=== PATIENT | male | born 1980 | race Caucasian/White ===

== ENCOUNTER 2023-07-27 11:20 | Inpatient (IN) | payer OTHER, SELFPAY ==
[2023-07-27 11:21] VITALS: BP 132/90; PULSE 89; RESP 14; TEMP 36.8; O2SAT 98; BMI 27.3
--- NOTE | 2023-07-27 11:32 | EDS_ITS ---
<Statement entered by Brianne Ayon MD - 07/27/23 15:02> I have personally performed a face to face assessment of the patient and have reviewed the DARIAN Note. Patient presents secondary to abdominal pain with nausea and vomiting. He states symptoms started last evening with a constant pain across his lower abdomen and intermittent cramping over the upper abdomen. He had multiple bouts of nausea and vomiting. He has not had a bowel movement states he does not feel he is passing gas. He denies history of bowel obstruction and has had no prior abdominal surgeries. He states no one else in his home is sick. Patient sitting upright in bed no acute distress. Head and neck examination unremarkable. Heart is regular rate and rhythm. Lung sounds are clear. Abdomen is soft with mild diffuse tenderness. No guarding or rebound. I do not appreciate any bowel sounds the time of my exam. Lab work is reviewed. Patient does have a leukocytosis with a slight left tamela ft. In light of this CT scan of the abdomen pelvis is obtained. This reveals a segment of small bowel that is inflamed and edematous, concerning for possible Crohn's flare. This is believed to be causing a partial small bowel obstruction. Patient was discussed with surgery as well as GI. Patient will be given Solu-Medrol and Zosyn and admitted to hospitalist service for supportive care. HPI History of Present Illness Chief Complaint: Abd Pain Narrative Narrative: 43-year-old male with no past medical history developed nausea and vomiting last evening with generalized abdominal pain and cramping. He states he last vomited at 8 AM this morning and there was a small amount of bright red blood in the mucus. He has not had a bowel movement in 2 days which is unusual for him. He typically goes 2-3 times daily. He has had no diarrhea, melena, or hematochezia. No urinary symptoms. No history of abdominal surgeries. He does not smoke and drinks alcohol 2-3 times a week. He takes no medications. [facility] Medical History no medical history Home Medications NK 07/27/23 [History Last Taken Unknown] Allergy/AdvReac Type Severity Reaction Status Date / Time No Known Allergies Allergy Verified 07/27/23 11:21 Surgical History no surgical history Social History Smoking Status: Former smoker ROS ROS ED ROS Narrative Constitutional: Negative for fever, chills, malaise. CVS: Negative for chest pain, syncope. Respiratory: Negative for shortness of breath, cough. GI: Positive for abdominal pain, nausea, vomiting. Negative for diarrhea, melena, hematochezia. : Negative for dysuria, hematuria or frequency. EXAM Physical Exam Narrative Exam Narrative: CONST: Patient sitting in no acute distress. EYES: Normal inspection. ENT: Normal inspection, moist mucous membranes. NECK: Normal inspection. RESP: No respiratory distress, CTAB. CVS: Regular rate and rhythm, no murmur, no gallop. ABD: Soft with generalized tenderness, no guarding or rebound, nondistended. SKIN: Color normal, no rash, warm, dry, intact. EXTREMITIES: Normal appearance, no pedal edema. NEURO: Oriented x4. PSYCH: Normal affect. Const Vital Signs: 07/27/23 11:21 Temperature 98.2 F Temperature Source Temporal Pulse Rate 89 Respiratory Rate 14 Blood Pressure 132/90 H Blood Pressure Mean 104 Pulse Ox 98 Oxygen Delivery Method Room Air MDM MDM MDM Narrative Medical decision making narrative: History gathered from: Patient and spouse Patient has acute nausea, vomiting, and abdominal pain since last night. He appears well and nontoxic. Vital signs stable. He has a normal cardiopulmonary exam. Abdomen is soft with generalized tenderness. No peritoneal signs. Differential includes gastroenteritis, diverticulitis, pancreatitis, cholecystitis, SBO among others. I ordered IV fluids, Bentyl, and Zofran and labs. CBC shows white count of 15.6. CMP is normal other than glucose 131 with normal CO2 and anion gap. Lipase within normal limits. Due to leukocytosis a CT was ordered. The radiologist called to go over the CT findings. He has extensive small bowel feces involving the last 20 cm of his ileum with edematous wall thickening concerning for a partial SBO. He states it looks like he may have underlying inflammatory bowel disease. Patient remains n.p.o. and has not vomited here so I do not think he requires an NG tube. General surgery was consulted who recommended admitting to medicine and consulting GI. Case was discussed with Dr. Winston who recommended IV Zosyn and Solu-Medrol. Case will be discussed with the hospitalist for admission. Consults: GI, general surgery, hospitalist Lab Data Attestation: I reviewed the patient's lab results. Labs: Laboratory Results - last 24 hr 07/27/23 11:40 WBC 15.6 H RBC 5.22 Hgb 16.1 Hct 45.3 MCV 86.8 MCH 30.8 MCHC 35.5 RDW Std Deviation 42.5 RDW Coeff of Jose Daniel 13.6 Plt Count 276 MPV 9.4 Immature Gran % (Auto) 0.300 Neut % (Auto) 83.1 H Lymph % (Auto) 9.3 L [place] % (Auto) 7.0 Eos % (Auto) 0.1 Baso % (Auto) 0.2 Absolute Neuts (auto) 13.0 H Absolute Lymphs (auto) 1.45 Nucleated RBC % 0 Sodium 137 Potassium 4.0 Chloride 102 Carbon Dioxide 27.0 Anion Gap 8 BUN 11 Creatinine 0.98 Estim Creat Clear Calc 102.45 Est GFR (MDRD) Af Amer 106 Est GFR (MDRD) Non-Af 88 BUN/Creatinine Ratio 11.2 Glucose 131 H Calcium 9.2 Total Bilirubin 0.80 AST 21 ALT 46 Alkaline Phosphatase 86 Total Protein 8.0 Albumin 4.1 Globulin 3.9 Albumin/Globulin Ratio 1.1 Lipase 54 Radiography Diagnostic Testing: Clinical Impression(s) from Imaging Studies Abdomen/Pelvis CT 07/27/23 11:58 IMPRESSION: 1. Extensive small bowel feces sign involving the distal/terminal ileum with edematous wall thickening. Mildly enlarged adjacent lymph nodes. Findings suggestive of at least partial small bowel obstruction that may be related to inflammatory bowel disease such as Crohn''s disease or infectious ileitis. 2. Trace ascites. 3. Fatty liver. 4. Small fat-containing paraumbilical hernia. No bowel involvement. N.B. : The above Results were Read Back by John Brenner MD to EDINSON Blood, and understanding confirmed on 07/27/2023 12:39:31 (ET). Electronically Signed: John Brenner MD at 12:41 EST , ADDENDUM: 07/27/23 1248 IMPRESSION: 1. Extensive small bowel feces sign involving the distal/terminal ileum with edematous wall thickening. Mildly enlarged adjacent lymph nodes. Findings suggestive of at least partial small bowel obstruction that may be related to inflammatory bowel disease such as Crohn''s disease or infectious ileitis. 2. Trace ascites. 3. Fatty liver. 4. Small fat-containing paraumbilical hernia. No bowel involvement. N.B. : The above Results were Read Back by John Brenner MD to EDINSON Blood, and understanding confirmed on 07/27/2023 12:39:31 (ET). Electronically Signed: John Brenner MD at 12:41 EST , Discharge Plan Triage Chief Complaint: Abd Pain ED Midlevel Provider: Leana Jones ED Provider: Brianne Ayon Dx/Rx/DC Orders Clinical Impression: Nausea and vomiting, Partial small bowel obstruction, Small bowel edema Prescriptions: No Action NK Primary Care Provider: Care Physician,No Primary Referrals: Parker Christensen MD [Non-Staff] -
[2023-07-27] MEDS: Dicyclomine 20 MG/2 ML Vial IM (11:41)
[2023-07-27] MEDS: Ondansetron 4 MG/2 ML Vial IV (11:42)
[2023-07-27] MEDS: 0.9% Normal Saline (1000mL) 1,000 ML 1000 ML IV (11:42)
[2023-07-27 11:45] LABS: Absolute Lymphocyte Count 1.45 X10^3/uL (0.83-4.51); Basophil# 0.03 X10^3/uL; Basophil% 0.2 % (0-1); Eosinophil# 0.02 X10^3/uL; Eosinophils% 0.1 % (0-5); Hematocrit 45.3 % (40-54); Hemoglobin 16.1 g/dL (13.0-16.5); Lymphocyte # 1.45 X10^3/ul (0.83-4.51); Lymphocyte % 9.3 % (19-41); Mean Corp Hgb Conc 35.5 g/dL (32-36); Mean Corpuscular Hgb 30.8 pg (27.0-32.0); Mean Corpuscular Volume 86.8 fL (80-94); Mean Platelet Vol. 9.4 fl (6.2-12.0); Monocyte# 1.09 X10^3/uL; NRBC Flagged by Analyzer 0 % (0-5); Neutrophil # 13.01 X10^3/uL (2.7-7.7); Neutrophil % 83.1 % (47-70); Platelet Count 276 K/mm3 (150-450); RBC Distribution Width CV 13.6 % (11.6-14.6); RBC Distribution Width SD 42.5 fl (35.1-43.9); Red Blood Count 5.22 M/mm3 (4.6-6.2); White Blood Count 15.6 K/mm3 (4.4-11.0)
--- NOTE | 2023-07-27 11:58 | CT_ITS ---
EXAM: CT ABDOMEN AND PELVIS WITH INTRAVENOUS CONTRAST CLINICAL INDICATION: abdominal pain TECHNIQUE: Helically acquired images were obtained of the abdomen and pelvis with intravenous contrast. This CT exam was performed using one or more of the following dose reduction techniques: automated exposure control, adjustment of the mA and/or kV according to patient size, and/or use of iterative reconstruction technique. CONTRAST: 100 cc of Isovue-300 IV. RADIATION DOSE: CTDIvol = 13.39 mGy, DLP = 916.67 mGy-cm COMPARISON: No relevant prior studies available. FINDINGS: LOWER THORAX: Unremarkable. Lung bases are clear. No cardiomegaly. No significant pericardial effusion. ABDOMEN: LIVER: There is diffuse low-attenuation of the liver. GALLBLADDER AND BILE DUCTS: Unremarkable. No calcified gallstones. No gallbladder distention or wall edema. No intra- or extrahepatic biliary ductal dilation. PANCREAS: Unremarkable. No focal cystic or solid mass. SPLEEN: Unremarkable. Normal size without focal cystic or solid mass. ADRENALS: Unremarkable. No nodules. KIDNEYS AND URETERS: Unremarkable. Normal renal size and position. No hydronephrosis. STOMACH AND BOWEL: Moderate amount of fecal-like material distending an approximate 20 cm length of the distal and terminal ileum up to 3.5 cm in diameter. Just proximal to this there is fluid distention of the distal ileum with mild edematous wall thickening. PELVIS: APPENDIX: No evidence of acute appendicitis. BLADDER: Unremarkable. REPRODUCTIVE: Unremarkable as visualized. No mass. ABDOMEN and PELVIS: INTRAPERITONEAL SPACE: Trace ascites. No free air. BONES/JOINTS: Unremarkable. No suspicious lytic or blastic abnormality. SOFT TISSUES: Small fat-containing paraumbilical hernia. VASCULATURE: Unremarkable. Abdominal aorta is non-dilated. LYMPH NODES: Multiple mildly enlarged adjacent lymph nodes adjacent to the terminal ileum. CT/Abdomen/Pelvis W IV Cont ONLY IMPRESSION: 1. Extensive small bowel feces sign involving the distal/terminal ileum with edematous wall thickening. Mildly enlarged adjacent lymph nodes. Findings suggestive of at least partial small bowel obstruction that may be related to inflammatory bowel disease such as Crohn''s disease or infectious ileitis. 2. Trace ascites. 3. Fatty liver. 4. Small fat-containing paraumbilical hernia. No bowel involvement. N.B. : The above Results were Read Back by John Brenner MD to EDINSON Blood, and understanding confirmed on 07/27/2023 12:39:31 (ET). Electronically Signed: John Brenner MD at 12:41 EST ,
[2023-07-27 12:08] LABS: ALB/GLOB Ratio 1.1 RATIO (0.9-2.4); AST(SGOT) 21 U/L (15-37); Alanine Aminotransfer ALT/SGPT 46 U/L (16-61); Albumin, Serum 4.1 g/dL (3.2-5.0); Alkaline Phosphatase 86 U/L (45-117); Anion Gap 8 (5-15); BUN 11 mg/dL (7-18); BUN/Creat Ratio 11.2 RATIO (10-20); Calcium,Total 9.2 mg/dL (8.5-10.1); Chloride 102 mmol/L (98-107); Creatinine, Serum 0.98 mg/dL (0.70-1.30); EST Glomerular Filtration Rate 88 mL/min (>60); Est Glom Filt Rate - Afr Amer 106 mL/min (>60); Estimated Creatinine Clearance 102.45 ml/min; Globulin 3.9 g/dL (2.2-4.2); Glucose 131 mg/dL (74-106); Lipase 54 U/L (13-75); Sodium Level 137 mmol/L (136-145)
[2023-07-27] MEDS: MethylPREDNISolone 125 MG/2 ML Vial IV (13:13)
--- NOTE | 2023-07-27 13:17 | HP.PCM.HOS_ITS ---
HPI - General General Date of Admission: 07/27/23 Date of Service: 07/27/23 Chief Complaint: Abd pain, n/v HPI Narrative DUSTIN MENDEZ, is a 43y/o M with no known past medical history who presented to [facility] 07/27/2023 with nausea and vomiting and generalized abdominal pain since last evening. Last vomited at 8 AM this morning and had some blood in his emesis. Has not had bowel movement in 2 days which is unusual for him. In the ED lab work-up only remarkable for CBC of 15.[address] was ordered, patient was found to have extensive small bowel feces involving at least 20 cm of ileum with edematous wall thickening concerning for partial small bowel obstruction inquired if there could be underlying inflammatory bowel disease. General surgery was contacted in the ED who recommended medicine admission and GI consult. GI was contacted in ED and recommended Solu-Medrol and IV Zosyn. Hospitalist contacted for admission. Patient seen with family member at bedside, he endorses history as above and stated he was in his usual health prior to that, has had some cold sweats after his episodes of nausea and vomiting which happened about 5 times with the last time being this morning. Was still nauseous and having abdominal pain when he came in however it is improving now with fluids, antibiotics, and steroids as well as Zosyn. Did have an episode of cramping primarily in his upper abdomen during exam when said he still some tenderness and pressure in his lower abdomen, still is not passed gas. [facility] Medical History no medical history Home Medications NK 07/27/23 [History Last Taken Unknown] Allergy/AdvReac Type Severity Reaction Status Date / Time No Known Allergies Allergy Verified 07/27/23 11:21 Surgical History no surgical history Social History Smoking Status: Former smoker ROS ROS Narrative General: Denies fever/chills but had some cold sweats with his nausea and vomiting HENT: Denies headache, denies stuffy nose, denies sore throat EYES: Denies changes in vision Resp: Denies cough, denies shortness of breath Cardiac: Denies chest pain GI: Abdominal cramping, no bowel movement in 2 days, nausea and vomiting for 2 days : Denies changes in urination Extremity: Denies swelling MSK: Denies weakness Neuro: Denies any numbness/tingling Heme: Denies any bleeding or bruising Skin: Denies rashes Psychiatric: No complaints voiced Vital Signs Vital Signs Vital Signs: 07/27/23 11:21 Temperature 98.2 F Temperature Source Temporal Pulse Rate 89 Respiratory Rate 14 Blood Pressure 132/90 H Blood Pressure Mean 104 Pulse Ox 98 Oxygen Delivery Method Room Air Weight Weight: 89.1 kg Body Mass Index (BMI) 27.3 Physical Exam Narrative General: Alert, oriented, no apparent distress HEENT: Atraumatic, normocephalic Eyes: Anicteric, normal conjunctiva, extraocular movements grossly intact Neck: Supple Respiratory: Clear to auscultation bilaterally, normal respiratory effort Cardiovascular: Regular rate and rhythm GI: Slightly distended, tender primarily in lower quadrants without rebound, guarding, rigidity Extremities: No edema Musculoskeletal: Moving all extremities Neuro: No overt focal neurological deficits Skin: No rashes appreciated Psych: Cooperative Results Lab / Micro Data 07/27/23 11:40 07/27/23 11:40 Labs: Laboratory Results - last 24 hr 07/27/23 11:40: WBC 15.6 H, RBC 5.22, Hgb 16.1, Hct 45.3, MCV 86.8, MCH 30.8, MCHC 35.5, RDW Std Deviation 42.5, RDW Coeff of Jose Daniel 13.6, Plt Count 276, MPV 9.4, Immature Gran % (Auto) 0.300, Neut % (Auto) 83.1 H, Lymph % (Auto) 9.3 L, [place] % (Auto) 7.0, Eos % (Auto) 0.1, Baso % (Auto) 0.2, Absolute Neuts (auto) 13.0 H, Absolute Lymphs (auto) 1.45, Nucleated RBC % 0, Sodium 137, Potassium 4.0, Chloride 102, Carbon Dioxide 27.0, Anion Gap 8, BUN 11, Creatinine 0.98, Estim Creat Clear Calc 102.45, Est GFR (MDRD) Af Amer 106, Est GFR (MDRD) Non-Af 88, BUN/Creatinine Ratio 11.2, Glucose 131 H, Calcium 9.2, Total Bilirubin 0.80, AST 21, ALT 46, Alkaline Phosphatase 86, Total Protein 8.0, Albumin 4.1, Globulin 3.9, Albumin/Globulin Ratio 1.1, Lipase 54 Imagaing Radiology Impression Abdomen/Pelvis CT 07/27/23 11:58 IMPRESSION: 1. Extensive small bowel feces sign involving the distal/terminal ileum with edematous wall thickening. Mildly enlarged adjacent lymph nodes. Findings suggestive of at least partial small bowel obstruction that may be related to inflammatory bowel disease such as Crohn''s disease or infectious ileitis. 2. Trace ascites. 3. Fatty liver. 4. Small fat-containing paraumbilical hernia. No bowel involvement. N.B. : The above Results were Read Back by John Brenner MD to EDINSON Blood, and understanding confirmed on 07/27/2023 12:39:31 (ET). Electronically Signed: John Brenner MD at 12:41 EST , ADDENDUM: 07/27/23 1248 IMPRESSION: 1. Extensive small bowel feces sign involving the distal/terminal ileum with edematous wall thickening. Mildly enlarged adjacent lymph nodes. Findings suggestive of at least partial small bowel obstruction that may be related to inflammatory bowel disease such as Crohn''s disease or infectious ileitis. 2. Trace ascites. 3. Fatty liver. 4. Small fat-containing paraumbilical hernia. No bowel involvement. N.B. : The above Results were Read Back by John Brenner MD to EDINSON Blood, and understanding confirmed on 07/27/2023 12:39:31 (ET). Electronically Signed: John Brenner MD at 12:41 EST , Assessment & Plan Assessment/Plan (1) Nausea and vomiting: (2) Partial small bowel obstruction: (3) Small bowel edema: PLAN: Plan #N/V/Abd pain 2/2 partial sbo/small bowel edema and ?crohn's flare -Lab work-up only remarkable for white blood cell count of 15.6 -CT scan in ED demonstrated extensive small bowel feces involving last 20 cm of ileum with edematous thickening concerning for partial small bowel obstruction but may have underlying inflammatory bowel disease based on imaging -NPO -IVF -Zosyn -Continue IV steroids -GI c/s, surgery c/s -I's and O's #DVT ppx: Lovenox subcu Candace Mills MD Time spent in the patient's overall evaluation,decision-making process, review of diagnostic data, adjustment of management, discussion with other providers, nursing nursing and ancillary staff involved in patient's care documentation, 55Minutes Charges/Coding Visit Charges Inpatient E&M: 57743 Init Hosp L2
[2023-07-27 13:20] VITALS: BP 128/74; PULSE 85; RESP 16; TEMP 36.7; O2SAT 98
[2023-07-27] MEDS: Piperacil/Tazobactam 3.375 GM in 0.9% Normal Saline (50mL MB+) 50 ML IV ×2 (13:35→21:11)
--- NOTE | 2023-07-27 13:36 | CON.PCM.SX_ITS ---
Assessment & Plan Assessment/Plan (1) Partial small bowel obstruction: PLAN: The patient presented with right lower quadrant pain since yesterday. He had a CT scan which showed some thickening of the small bowel in the distal ileum as well as the proximal colon. Patient also has some fecalization of stool in the distal small bowel. The patient does have stool in the colon and proximal to the fecalized stool there is no distention of small bowel. There was concern for possible inflammatory bowel disease. I discussed with the spitalist and the plan is to admit the patient and start steroids. If the steroids do not help I will order a p.o. and IV contrast CT in the morning to see if the p.o. contrast will help move things along and to get a better image of the wall thickening of the colon. Sly Resendiz MD Pager: [facility] [address] [place] [address], [address] [place] [address] Office: HPI Consult Data Date of Consult: 07/27/23 HPI Narrative HPI Narrative: DUSTIN MENDEZ, is a 43 M who presents with lower pain that started yesterday. Patient reports he did have some nausea and vomiting and cramping. Says he does not see any blood in his stool. He says the pain is in his lower abdomen and right lower quadrant. He says he does not have any family history of Crohn's disease or inflammatory bowel disease. [facility] Medical History no medical history Home Medications NK 07/27/23 [History Last Taken Unknown] Allergy/AdvReac Type Severity Reaction Status Date / Time No Known Allergies Allergy Verified 07/27/23 11:21 Surgical History no surgical history Social History Smoking Status: Former smoker ROS Constitutional Constitutional: Denies anorexia, chills, fatigue or fever(s) Eyes Eyes: Denies blurry vision ENT HEENT: Denies abnormal hearing Cardiovascular Cardiovascular: Denies chest pain Respiratory/Chest Respiratory/Chest: Denies cough or dyspnea Gastrointestinal Gastrointestinal: Reports abdominal pain and vomiting; Denies change in bowel habits, coffee ground emesis, hematemesis, hematochezia or rectal bleeding Genitourinary Genitourinary: Denies change in urinary stream Musculoskeletal Musculoskeletal: Denies abnormal gait Integumentary Integumentary: Denies jaundice or new lesions Neurologic Neurologic: Denies dizziness Psychiatric Psychiatric: Denies anxiety Endocrine Endocrinology: Denies heat intolerance Hematologic/Lymphatic Hematologic/Lymphatic: Denies easy bleeding Physical Exam Const alert and oriented x3 HEENT normocephalic Eyes PERRL Lymph Lymphatic: no lymphadenopathy noted Resp normal respiratory effort Cardio Rate: regular rate Rhythm: regular rhythm GI soft to palpation Inspection: Negative for abdominal distention Palpation: tender LLQ and RLQ Lab / Micro Data 07/27/23 11:40 07/27/23 11:40 Labs: Laboratory Results - last 24 hr 07/27/23 11:40: WBC 15.6 H, RBC 5.22, Hgb 16.1, Hct 45.3, MCV 86.8, MCH 30.8, MCHC 35.5, RDW Std Deviation 42.5, RDW Coeff of Jose Daniel 13.6, Plt Count 276, MPV 9.4, Immature Gran % (Auto) 0.300, Neut % (Auto) 83.1 H, Lymph % (Auto) 9.3 L, [place] % (Auto) 7.0, Eos % (Auto) 0.1, Baso % (Auto) 0.2, Absolute Neuts (auto) 13.0 H, Absolute Lymphs (auto) 1.45, Nucleated RBC % 0, Sodium 137, Potassium 4.0, Chloride 102, Carbon Dioxide 27.0, Anion Gap 8, BUN 11, Creatinine 0.98, Estim Creat Clear Calc 102.45, Est GFR (MDRD) Af Amer 106, Est GFR (MDRD) Non-Af 88, BUN/Creatinine Ratio 11.2, Glucose 131 H, Calcium 9.2, Total Bilirubin 0.80, AST 21, ALT 46, Alkaline Phosphatase 86, Total Protein 8.0, Albumin 4.1, Globulin 3.9, Albumin/Globulin Ratio 1.1, Lipase 54 Imagaing Radiology Impression Abdomen/Pelvis CT 07/27/23 11:58 IMPRESSION: 1. Extensive small bowel feces sign involving the distal/terminal ileum with edematous wall thickening. Mildly enlarged adjacent lymph nodes. Findings suggestive of at least partial small bowel obstruction that may be related to inflammatory bowel disease such as Crohn''s disease or infectious ileitis. 2. Trace ascites. 3. Fatty liver. 4. Small fat-containing paraumbilical hernia. No bowel involvement. N.B. : The above Results were Read Back by John Brenner MD to EDINSON Blood, and understanding confirmed on 07/27/2023 12:39:31 (ET). Electronically Signed: John Brenner MD at 12:41 EST , ADDENDUM: 07/27/23 1248
[2023-07-27 14:24] VITALS: BP 133/79; PULSE 75; RESP 16; TEMP 36.7; O2SAT 99
[2023-07-27 14:55] VITALS: BP 114/48; PULSE 73; RESP 16; TEMP 37.1; O2SAT 94
[2023-07-27 14:57] VITALS: BMI 37.2
[2023-07-27] MEDS: 0.9% Normal Saline (1000mL) 1,000 ML 100 ML IV (16:09)
--- NOTE | 2023-07-27 16:35 | EX.PCM.CON.G ---
HPI Consult Data Date of Consult: 07/27/23 HPI Narrative Reason for Consultation: Possible Crohns disease HPI Narrative: DUSTIN MENDEZ, is a 43 M who presents with worsening abdominal pain with nausea and vomiting. He states symptoms started last evening with a constant pain across his lower abdomen and intermittent cramping over the upper abdomen. He had multiple bouts of nausea and vomiting. He has not had a bowel movement states he does not feel he is passing gas. He denies history of bowel obstruction and has had no prior abdominal surgeries. He states no one else in his home is sick. He does take occasional Motrin and aspirin for occasional headache but does not take it on a daily basis. Lab work is reviewed. Patient does have a leukocytosis with a slight left shift. In light of this CT scan of the abdomen pelvis is obtained. This reveals a segment of small bowel that is inflamed and edematous, concerning for possible Crohn's flare. This is believed to be causing a partial small bowel obstruction. Patient was be given Solu-Medrol and Zosyn and admitted to hospitalist service for supportive care. [facility] Medical History (Updated 07/27/23 @ 16:[address] Bartlett Friend, DO) Former smoker Migraines Medical History no medical history Home Medications NK 07/27/23 [History Last Taken Unknown] Allergy/AdvReac Type Severity Reaction Status Date / Time No Known Allergies Allergy Verified 07/27/23 11:21 Surgical History no surgical history Social History Smoking Status: Former smoker ROS Constitutional Constitutional: Denies anorexia, chills, fatigue or fever(s) Eyes Eyes: Denies blurry vision ENT HEENT: Denies abnormal hearing Cardiovascular Cardiovascular: Denies chest pain Respiratory/Chest Respiratory/Chest: Denies cough or dyspnea Gastrointestinal Gastrointestinal: Reports abdominal pain and vomiting; Denies change in bowel habits, coffee ground emesis, hematemesis, hematochezia or rectal bleeding Genitourinary Genitourinary: Denies change in urinary stream Musculoskeletal Musculoskeletal: Denies abnormal gait Integumentary Integumentary: Denies jaundice or new lesions Neurologic Neurologic: Denies dizziness Psychiatric Psychiatric: Denies anxiety Endocrine Endocrinology: Denies heat intolerance Hematologic/Lymphatic Hematologic/Lymphatic: Denies easy bleeding Physical Exam Const alert and oriented x3 HEENT normocephalic Eyes PERRL Lymph Lymphatic: no lymphadenopathy noted Resp normal respiratory effort Cardio Rate: regular rate Rhythm: regular rhythm GI soft to palpation Inspection: Negative for abdominal distention Palpation: tender LLQ and RLQ Lab / Micro Data 07/27/23 11:40 07/27/23 11:40 Labs: Laboratory Results - last 24 hr 07/27/23 11:40: WBC 15.6 H, RBC 5.22, Hgb 16.1, Hct 45.3, MCV 86.8, MCH 30.8, MCHC 35.5, RDW Std Deviation 42.5, RDW Coeff of Jose Daniel 13.6, Plt Count 276, MPV 9.4, Immature Gran % (Auto) 0.300, Neut % (Auto) 83.1 H, Lymph % (Auto) 9.3 L, [place] % (Auto) 7.0, Eos % (Auto) 0.1, Baso % (Auto) 0.2, Absolute Neuts (auto) 13.0 H, Absolute Lymphs (auto) 1.45, Nucleated RBC % 0, Sodium 137, Potassium 4.0, Chloride 102, Carbon Dioxide 27.0, Anion Gap 8, BUN 11, Creatinine 0.98, Estim Creat Clear Calc 102.45, Est GFR (MDRD) Af Amer 106, Est GFR (MDRD) Non-Af 88, BUN/Creatinine Ratio 11.2, Glucose 131 H, Calcium 9.2, Total Bilirubin 0.80, AST 21, ALT 46, Alkaline Phosphatase 86, Total Protein 8.0, Albumin 4.1, Globulin 3.9, Albumin/Globulin Ratio 1.1, Lipase 54 Imagaing Radiology Impression Abdomen/Pelvis CT 07/27/23 11:58 IMPRESSION: 1. Extensive small bowel feces sign involving the distal/terminal ileum with edematous wall thickening. Mildly enlarged adjacent lymph nodes. Findings suggestive of at least partial small bowel obstruction that may be related to inflammatory bowel disease such as Crohn''s disease or infectious ileitis. 2. Trace ascites. 3. Fatty liver. 4. Small fat-containing paraumbilical hernia. No bowel involvement. N.B. : The above Results were Read Back by John Brenner MD to [facility] Blood, and understanding confirmed on 07/27/2023 12:39:31 (ET). Electronically Signed: John Brenner MD at 12:41 EST , ADDENDUM: 07/27/23 1248 IMPRESSION: 1. Extensive small bowel feces sign involving the distal/terminal ileum with edematous wall thickening. Mildly enlarged adjacent lymph nodes. Findings suggestive of at least partial small bowel obstruction that may be related to inflammatory bowel disease such as Crohn''s disease or infectious ileitis. 2. Trace ascites. 3. Fatty liver. 4. Small fat-containing paraumbilical hernia. No bowel involvement. N.B. : The above Results were Read Back by John Brenner MD to [facility]IN[facility] Blood, and understanding confirmed on 07/27/2023 12:39:31 (ET). Electronically Signed: John Brenner MD at 12:41 EST , Assessment & Plan Assessment/Plan (1) Small bowel edema: (2) Partial small bowel obstruction: (3) Nausea and vomiting: QUALIFIERS: Vomiting type: unspecified Qualified Code(s): R11.2 - Nausea with vomiting, unspecified PLAN: Plan Isolated terminal ileitis is commonly found associated with Crohn's disease but it has other etiologies too. Other common causes of isolated terminal ileitis include NSAID use, tuberculosis and other bacterial/parasitic infections, neoplasia, radiation or other autoimmune disorders. Agree with antibiotics and steroids at this time. We went over the natural history of possible inflammatory bowel disease being fibrostenotic, inflammatory or fistulizing. I will send biochemical profile for inflammatory bowel disease. I will also send biochemical work-up for autoimmune diseases such as Behcet's syndrome. He will need stool cultures, fecal calprotectin, ESR, CRP, ONI, ANCA, LDH, protein electrophoresis. Eventually he will need a colonoscopy with biopsies and MRI enterography with possible capsule endoscopy. Charges/Coding Visit Charges Inpatient E&M: 87339 Init Hosp L3
[2023-07-27 17:36] LABS: Erythrocyte Sedimentation Rate 10 mm/hr (0-20)
[2023-07-27 17:41] LABS: LDH 192 U/L (87-241)
[2023-07-27 21:09] VITALS: BP 122/68; PULSE 84; RESP 18; TEMP 36.8; O2SAT 93
[2023-07-27] MEDS: 0.9% Normal Saline (250mL Bag) 250 ML 15 ML IV (21:12)
[2023-07-28] MEDS: 0.9% Normal Saline (1000mL) 1,000 ML 100 ML IV ×3 (00:27→21:15)
[2023-07-28] MEDS: 0.9% Saline Lock 10 ML Syringe IV ×4 (00:28→21:08)
[2023-07-28 00:31] VITALS: BP 130/63; PULSE 74; RESP 18; TEMP 36.4; O2SAT 95
[2023-07-28 05:34] VITALS: BP 121/67; PULSE 69; RESP 18; TEMP 36.4; O2SAT 97
[2023-07-28] MEDS: Piperacil/Tazobactam 3.375 GM in 0.9% Normal Saline (50mL MB+) 50 ML IV ×3 (05:38→21:10)
--- NOTE | 2023-07-28 08:09 | PN.SURG_ITS ---
Subjective Subjective Patient reports he is feeling much better today. He is having no abdominal pain or bloating. He denies any nausea or vomiting. He says he did pass gas several times through the night. He has not had a bowel movement yet. Objective Data Objective Data Vital Signs: Vital Signs Temp Pulse Resp BP Pulse Ox O2 Del Method 97.6 F L 69 18 121/67 H 97 Room Air 07/28/23 05:34 07/28/23 05:34 07/28/23 05:34 07/28/23 05:34 07/28/23 05:34 07/28/23 05:34 Oxygen Delivery Method Room Air Weight: 197 lb 1.492 oz Body Mass Index (BMI) 37.2 Intake & Output: Intake and Output for Last 24 Hours 07/26/23 07/27/23 07/28/23 23:59 23:59 23:59 Intake Total 1051.75 / 1051.75 946.75 / 946.75 Balance 1051.75 / 1051.75 946.75 / 946.75 Lab / Micro Data 07/27/23 11:40 07/27/23 11:40 Labs: Laboratory Results - last 24 hr 07/27/23 11:40: WBC 15.6 H, RBC 5.22, Hgb 16.1, Hct 45.3, MCV 86.8, MCH 30.8, MCHC 35.5, RDW Std Deviation 42.5, RDW Coeff of Jose Daniel 13.6, Plt Count 276, MPV 9.4, Immature Gran % (Auto) 0.300, Neut % (Auto) 83.1 H, Lymph % (Auto) 9.3 L, [place] % (Auto) 7.0, Eos % (Auto) 0.1, Baso % (Auto) 0.2, Absolute Neuts (auto) 13.0 H, Absolute Lymphs (auto) 1.45, Nucleated RBC % 0, ESR 10, Sodium 137, Potassium 4.0, Chloride 102, Carbon Dioxide 27.0, Anion Gap 8, BUN 11, Creatinine 0.98, Estim Creat Clear Calc 102.45, Est GFR (MDRD) Af Amer 106, Est GFR (MDRD) Non-Af 88, BUN/Creatinine Ratio 11.2, Glucose 131 H, Calcium 9.2, Total Bilirubin 0.80, AST 21, ALT 46, Alkaline Phosphatase 86, Lactate Dehydrogenase 192, C-React Prot Ext Range 12.50 H, Total Protein 8.0, Albumin 4.1, Globulin 3.9, Albumin/Globulin Ratio 1.1, Lipase 54 Radiography Diagnostic Testing: Radiology Impression Abdomen/Pelvis CT 07/27/23 11:58 IMPRESSION: 1. Extensive small bowel feces sign involving the distal/terminal ileum with edematous wall thickening. Mildly enlarged adjacent lymph nodes. Findings suggestive of at least partial small bowel obstruction that may be related to inflammatory bowel disease such as Crohn''s disease or infectious ileitis. 2. Trace ascites. 3. Fatty liver. 4. Small fat-containing paraumbilical hernia. No bowel involvement. N.B. : The above Results were Read Back by John Brenner MD to [facility] Blood, and understanding confirmed on 07/27/2023 12:39:31 (ET). Electronically Signed: John Brenner MD at 12:41 EST , ADDENDUM: 07/27/23 1248 IMPRESSION: 1. Extensive small bowel feces sign involving the distal/terminal ileum with edematous wall thickening. Mildly enlarged adjacent lymph nodes. Findings suggestive of at least partial small bowel obstruction that may be related to inflammatory bowel disease such as Crohn''s disease or infectious ileitis. 2. Trace ascites. 3. Fatty liver. 4. Small fat-containing paraumbilical hernia. No bowel involvement. N.B. : The above Results were Read Back by John Brenner MD to [facility] Blood, and understanding confirmed on 07/27/2023 12:39:31 (ET). Electronically Signed: John Brenner MD at 12:41 EST , Physical Exam Const oriented x3 and no apparent distress Resp normal respiratory effort GI soft to palpation and non-tender Assessment & Plan Assessment/Plan (1) Partial small bowel obstruction: PLAN: The patient reports that he is feeling much better with no bloating and he is passing gas. His abdomen is soft and nontender and he is not having any pain. I believe this is likely due to the steroids. I am okay with him advancing his diet but I will leave that decision to the primary team and the GI doctor. No signs of acute obstruction at this time. No plans for surgery at this time. Sly Resendiz MD Pager: [facility] [address] [place] [address], [address] [place] [phone] Office:
[2023-07-28 08:42] LABS: Absolute Lymphocyte Count 0.86 X10^3/uL (0.83-4.51); Absolute Neutrophil Count 13.6 X10^3/uL (2.0-7.7); Basophil# 0.02 X10^3/uL; Basophil% 0.1 % (0-1); Hemoglobin 13.9 g/dL (13.0-16.5); Lymphocyte # 0.86 X10^3/ul (0.83-4.51); Lymphocyte % 5.8 % (19-41); Mean Corp Hgb Conc 33.1 g/dL (32-36); Mean Corpuscular Hgb 30.2 pg (27.0-32.0); Mean Corpuscular Volume 91.3 fL (80-94); Mean Platelet Vol. 10.2 fl (6.2-12.0); Monocyte# 0.33 X10^3/uL; Monocyte% 2.2 % (0-10); NRBC Flagged by Analyzer 0 % (0-5); Neutrophil # 13.61 X10^3/uL (2.7-7.7); Neutrophil % 91.4 % (47-70); Platelet Count 245 K/mm3 (150-450); RBC Distribution Width CV 13.8 % (11.6-14.6); RBC Distribution Width SD 46.3 fl (35.1-43.9); White Blood Count 14.9 K/mm3 (4.4-11.0)
[2023-07-28 09:27] LABS: AST(SGOT) 16 U/L (15-37); Alanine Aminotransfer ALT/SGPT 33 U/L (16-61); Albumin, Serum 3.3 g/dL (3.2-5.0); Alkaline Phosphatase 71 U/L (45-117); Anion Gap 4 (5-15); BUN 14 mg/dL (7-18); BUN/Creat Ratio 17.7 RATIO (10-20); Calcium,Total 8.6 mg/dL (8.5-10.1); Chloride 111 mmol/L (98-107); Creatinine, Serum 0.79 mg/dL (0.70-1.30); EST Glomerular Filtration Rate 113 mL/min (>60); Est Glom Filt Rate - Afr Amer 136 mL/min (>60); Estimated Creatinine Clearance 88.27 ml/min; Globulin 3.4 g/dL (2.2-4.2); Glucose 138 mg/dL (74-106); Potassium 3.8 mmol/L (3.5-5.1); Protein, Total 6.7 g/dL (6.4-8.2); Sodium Level 141 mmol/L (136-145); Thyroid Stim Hormone (TSH) 0.31 uIU/mL (0.358-3.74)
[2023-07-28 09:59] VITALS: BP 132/73; PULSE 80; RESP 18; TEMP 37.1; O2SAT 98
--- NOTE | 2023-07-28 10:12 | NURSING ---
Pt is walking in [place] with . States he [place] a lot in [place]. Pt is aware he is now aloud to have clear liquid diet. education regarding clear liquid diet given.
--- NOTE | 2023-07-28 10:21 | CASEMGMT ---
CHRIS GENAO Assessment: Face to Face with pt for initial transition planning/care coordination assessment. RN CM introduced self and role at [facility], pt voices understanding and consents to assessment. Pt is A&O x4 and answers all questions appropriately at this time. Pt sitting up in bed with at bedside in no distress. Care providers, pharmacy, and demographics verified/updated. Admitting Dx: partial SBO, small bowel swelling PCP:EDINSON Hamilotn Specialists:anastasia Villarreal Pharmacy: [facility] Insurance: MMO Prescription Benefit: yes LNOK: Julieta Noonan, Living Arrangements: Pt lives with and 2 children in a single story home with no steps to enter. Pt reports he is I in ADL's and denies concerns at home. Transportation: Pt drives self and denies concerns with transportation. DME:walker available HHC/SNF: Denies hx of Pt states no concerns with going home at time of dc. Pt states no further concerns/needs. CM to follow. Advised pt to ask CM if any further question/concerns/needs arise, voices understanding. Pt Goal: Home Plan: Home
--- NOTE | 2023-07-28 10:30 | PN.HOSP_ITS ---
Subjective Subjective Doing well, no issues overnight Objective Data Objective Data Vital Signs: Vital Signs Temp Pulse Resp BP Pulse Ox O2 Del Method 98.8 F 80 18 132/73 H 98 Room Air 07/28/23 09:59 07/28/23 09:59 07/28/23 09:59 07/28/23 09:59 07/28/23 09:59 07/28/23 09:59 Oxygen Delivery Method Room Air Weight: 197 lb 1.492 oz Body Mass Index (BMI) 37.2 Intake & Output: Intake and Output for Last 24 Hours 07/27/23 07/28/23 07/29/23 03:59 03:59 03:59 Intake Total 1931.75 / 193.75 1115.08 / 1115.08 Balance 193.75 / 1930.75 1115.08 / 1115.08 Lab / Micro Data 07/28/23 07:50 07/28/23 07:50 Labs: Laboratory Results - last 24 hr 07/27/23 11:40: WBC 15.6 H, RBC 5.22, Hgb 16.1, Hct 45.3, MCV 86.8, MCH 30.8, MCHC 35.5, RDW Std Deviation 42.5, RDW Coeff of Jose Daniel 13.6, Plt Count 276, MPV 9.4, Immature Gran % (Auto) 0.300, Neut % (Auto) 83.1 H, Lymph % (Auto) 9.3 L, [place] % (Auto) 7.0, Eos % (Auto) 0.1, Baso % (Auto) 0.2, Absolute Neuts (auto) 13.0 H, Absolute Lymphs (auto) 1.45, Nucleated RBC % 0, ESR 10, Sodium 137, Potassium 4.0, Chloride 102, Carbon Dioxide 27.0, Anion Gap 8, BUN 11, Creatinine 0.98, Estim Creat Clear Calc 102.45, Est GFR (MDRD) Af Amer 106, Est GFR (MDRD) Non-Af 88, BUN/Creatinine Ratio 11.2, Glucose 131 H, Calcium 9.2, T otal Bilirubin 0.80, AST 21, ALT 46, Alkaline Phosphatase 86, Lactate Dehydrogenase 192, C-React Prot Ext Range 12.50 H, Total Protein 8.0, Albumin 4.1, Globulin 3.9, Albumin/Globulin Ratio 1.1, Lipase 54 07/28/23 07:50: WBC 14.9 H, RBC 4.60, Hgb 13.9, Hct 42.0, MCV 91.3 D, MCH 30.2, MCHC 33.1 D, RDW Std Deviation 46.3 H, RDW Coeff of Jose Daniel 13.8, Plt Count 245, MPV 10.2, Immature Gran % (Auto) 0.500, Neut % (Auto) 91.4 H, Lymph % (Auto) 5.8 L, [place] % (Auto) 2.2, Eos % (Auto) 0.0, Baso % (Auto) 0.1, Absolute Neuts (auto) 13.6 H, Absolute Lymphs (auto) 0.86, Nucleated RBC % 0, Sodium 141, Potassium 3.8, Chloride 111 H, Carbon Dioxide 26.0, Anion Gap 4 L, BUN 14, Creatinine 0.79, Estim Creat Clear Calc 88.27, Est GFR (MDRD) Af Amer 136, Est GFR (MDRD) Non-Af 113, BUN/Creatinine Ratio 17.7, Glucose 138 H, Calcium 8.6, Total Bilirubin 0.50, AST 16, ALT 33, Alkaline Phosphatase 71, Total Protein 6.7, Albumin 3.3, Globulin 3.4, Albumin/Globulin Ratio 1.0, TSH 0.31 L Radiography Diagnostic Testing: Radiology Impression Abdomen/Pelvis CT 07/27/23 11:58 IMPRESSION: 1. Extensive small bowel feces sign involving the distal/terminal ileum with edematous wall thickening. Mildly enlarged adjacent lymph nodes. Findings suggestive of at least partial small bowel obstruction that may be related to inflammatory bowel disease such as Crohn''s disease or infectious ileitis. 2. Trace ascites. 3. Fatty liver. 4. Small fat-containing paraumbilical hernia. No bowel involvement. N.B. : The above Results were Read Back by John Brenner MD to [facility] Blood, and understanding confirmed on 07/27/2023 12:39:31 (ET). Electronically Signed: John rBenner MD at 12:41 EST , ADDENDUM: 07/27/23 1248 IMPRESSION: 1. Extensive small bowel feces sign involving the distal/terminal ileum with edematous wall thickening. Mildly enlarged adjacent lymph nodes. Findings suggestive of at least partial small bowel obstruction that may be related to inflammatory bowel disease such as Crohn''s disease or infectious ileitis. 2. Trace ascites. 3. Fatty liver. 4. Small fat-containing paraumbilical hernia. No bowel involvement. N.B. : The above Results were Read Back by John Brenner MD to EDINSON Blood, and understanding confirmed on 07/27/2023 12:39:31 (ET). Electronically Signed: John Brenner MD at 12:41 EST , Physical Exam Narrative General: Alert, Oriented x3, Cooperative, No apparent distress HEENT: Atraumatic, PERRLA, EOMI, Normocephalic Oral: Moist Mucosa Neck: Supple, No JVD Lungs: Clear to auscultation, Normal air movement, No rhonchi, No wheeze, No rales Cardiovascular: Regular rate, Regular Rhythm, Normal S1, Normal S2, No murmurs Abdomen: Soft, Non Tender, Non-Distended, No Hepato-splenomegaly Extremities: No edema, Capillary Refill Less than 3 Seconds Skin: No rashes, No breakdown Musculoskeletal: No Tenderness to Palpation of Joints or Extremities Neurological: Cranial nerves II-XII grossly intact, Motor Exam 5/5 strength throughout, Sensory exam intact to light touch and pain Psych/Mental Status: Normal Affect, Appropriate Assessment & Plan Assessment/Plan (1) Nausea and vomiting: QUALIFIERS: Vomiting type: unspecified Qualified Code(s): R11.2 - Nausea with vomiting, unspecified (2) Partial small bowel obstruction: (3) Small bowel edema: PLAN: Plan 1. Partial small bowel obstruction with questionable Crohn's flare ? Appreciate GI and general surgery's assistance ? She is starting to pass gas and denies any abdominal pain ? We will trial him on a clear liquid diet and slowly advance him ? Continue with steroids and antibiotics ? Will likely need colonoscopy in the next couple of weeks ? Given his symptomatic improvement we will hold off on CT scan ? He denies any family history whatsoever of inflammatory bowel disease or other autoimmune diseases. DVT: Lovenox Charges/Coding Visit Charges Inpatient E&M: 19672 Subs Hosp L2
[2023-07-28 14:58] VITALS: BP 129/73; PULSE 103; RESP 19; TEMP 36.6; O2SAT 97
--- NOTE | 2023-07-28 16:37 | CT_ITS ---
STUDY: CT ABDOMEN AND PELVIS WITH AND WITHOUT CONTRAST REASON FOR EXAM: Male, 43 years old. Crohns stricture RADIATION DOSAGE (If Supplied By Facility): CTDIvol = ( 16.19 ) mGy, DLP = ( 839.75 ) mGycm TECHNIQUE: Transaxial images were obtained from the dome of the diaphragm to the symphysis pubis with oral contrast. 100mL Isovue-370 was administered. Sagittal and coronal images were reconstructed. Individualized dose optimization techniques were used for this CT. COMPARISON: None. FINDINGS: Mild atelectasis in the lung bases. The visualized portions of the heart are within normal limits. Normal liver. Normal gallbladder and extrahepatic biliary system. Normal spleen. Normal pancreas. Normal bilateral adrenal glands. Normal right kidney. Normal left kidney. Normal visualized stomach. Circumferential stratified wall thickening (12 mm, severe) and fold thickening involving the distal ileum measures approximately 20 cm in length and extends to the ileocecal valve. There is fibrofatty stranding in the right lower quadrant with vascular congestion as seen on image 84 of series 2. No extraluminal contrast. No enteric fistula demonstrated. There is documented passage of oral contrast through this segment which is moderately narrowed. Mildly enlarged lymph nodes in the right lower quadrant (image 44 series 601) that measure less than 1 cm in short axis. No dilated bowel on the current exam with reduction in diameter as compared to the previous day. No colon wall thickening. There is non-visualization of the appendix. Normal abdominal aorta. Normal inferior vena cava. There is borderline retroperitoneal lymphadenopathy with enlarged nodes no greater than 10mm in the short axis diameter. Normal urinary bladder. Normal abdominal wall. There are diffuse degenerative changes of the visualized lumbar spine. CT/Abdomen/Pelvis WITH Contrast IMPRESSION: 1. Terminal ileum wall stranding identified thickening, fold thickening and adjacent fibrofatty proliferation with moderate luminal narrowing/stricture but no bertha obstruction. Findings are compatible with Crohn''s disease/IBD. No enteric fistula, sinus tract, abscess or extraluminal contrast. Electronically Signed: John Finneagn MD ([place]) at 20:40 EST ,
[2023-07-28 21:13] VITALS: BP 119/73; PULSE 74; RESP 18; TEMP 36.6; O2SAT 97
[2023-07-29 00:47] VITALS: BP 114/64; PULSE 67; RESP 18; TEMP 36.7; O2SAT 96
[2023-07-29] MEDS: 0.9% Saline Lock 10 ML Syringe IV ×2 (00:49→05:38)
[2023-07-29 05:36] VITALS: BP 115/73; PULSE 62; RESP 18; TEMP 36.6; O2SAT 95
[2023-07-29] MEDS: Piperacil/Tazobactam 3.375 GM in 0.9% Normal Saline (50mL MB+) 50 ML IV ×2 (05:40→13:17)
[2023-07-29] MEDS: 0.9% Normal Saline (1000mL) 1,000 ML 100 ML IV (05:41)
[2023-07-29 05:44] LABS: Absolute Lymphocyte Count 1.11 X10^3/uL (0.83-4.51); Absolute Neutrophil Count 11.7 X10^3/uL (2.0-7.7); Basophil# 0.01 X10^3/uL; Basophil% 0.1 % (0-1); Hematocrit 40.2 % (40-54); Hemoglobin 13.2 g/dL (13.0-16.5); Lymphocyte # 1.11 X10^3/ul (0.83-4.51); Lymphocyte % 8.3 % (19-41); Mean Corp Hgb Conc 32.8 g/dL (32-36); Mean Corpuscular Hgb 30.1 pg (27.0-32.0); Mean Corpuscular Volume 91.6 fL (80-94); Monocyte# 0.39 X10^3/uL; Monocyte% 2.9 % (0-10); NRBC Flagged by Analyzer 0 % (0-5); Neutrophil # 11.73 X10^3/uL (2.7-7.7); Neutrophil % 88.2 % (47-70); Platelet Count 232 K/mm3 (150-450); RBC Distribution Width CV 13.9 % (11.6-14.6); RBC Distribution Width SD 47.2 fl (35.1-43.9); Red Blood Count 4.39 M/mm3 (4.6-6.2); White Blood Count 13.3 K/mm3 (4.4-11.0)
[2023-07-29 06:22] LABS: Anion Gap 7 (5-15); BUN 13 mg/dL (7-18); BUN/Creat Ratio 18.1 RATIO (10-20); Calcium,Total 8.1 mg/dL (8.5-10.1); Chloride 111 mmol/L (98-107); Creatinine, Serum 0.72 mg/dL (0.70-1.30); EST Glomerular Filtration Rate 126 mL/min (>60); Est Glom Filt Rate - Afr Amer 152 mL/min (>60); Estimated Creatinine Clearance 96.85 ml/min; Glucose 132 mg/dL (74-106); Sodium Level 144 mmol/L (136-145)
--- NOTE | 2023-07-29 08:06 | PCM.PN.SRG ---
Subjective Subjective Patient denies any abdominal pain tolerating clear liquids. Objective Data Objective Data Vital Signs: Vital Signs Temp Pulse Resp BP Pulse Ox O2 Del Method 97.8 F 62 18 115/73 95 Room Air 07/29/23 05:36 07/29/23 05:36 07/29/23 05:36 07/29/23 05:36 07/29/23 05:36 07/29/23 05:36 Oxygen Delivery Method Room Air Weight: 197 lb 1.492 oz Body Mass Index (BMI) 37.2 Intake & Output: Intake and Output for Last 24 Hours 07/27/23 07/28/23 07/29/23 23:59 23:59 23:59 Intake Total 1051.75 / 1051.75 4365.08 / 4365.08 1360.83 / 1360.83 Balance 1051.75 / 1051.75 4365.08 / 4365.08 1360.83 / 1360.83 Lab / Micro Data 07/29/23 04:45 07/29/23 04:45 Labs: Laboratory Results - last 24 hr 07/28/23 07:50: WBC 14.9 H, RBC 4.60, Hgb 13.9, Hct 42.0, MCV 91.3 D, MCH 30.2, MCHC 33.1 D, RDW Std Deviation 46.3 H, RDW Coeff of Jose Daniel 13.8, Plt Count 245, MPV 10.2, Immature Gran % (Auto) 0.500, Neut % (Auto) 91.4 H, Lymph % (Auto) 5.8 L, [place] % (Auto) 2.2, Eos % (Auto) 0.0, Baso % (Auto) 0.1, Absolute Neuts (auto) 13.6 H, Absolute Lymphs (auto) 0.86, Nucleated RBC % 0, Sodium 141, Potassium 3.8, Chloride 111 H, Carbon Dioxide 26.0, Anion Gap 4 L, BUN 14, Creatinine 0.79, Estim Creat Clear Calc 88.27, Est GFR (MDRD) Af Amer 136, Est GFR (MDRD) Non-Af 113, BUN/Creatinine Ratio 17.7, Glucose 138 H, Calcium 8.6, Total Bilirubin 0.50, AST 16, ALT 33, Alkaline Phosphatase 71, Total Protein 6.7, Albumin 3.3, Globulin 3.4, Albumin/Globulin Ratio 1.0, TSH 0.31 L 07/29/23 04:45: WBC 13.3 H, RBC 4.39 L, Hgb 13.2, Hct 40.2, MCV 91.6, MCH 30.1, MCHC 32.8, RDW Std Deviation 47.2 H, RDW Coeff of Jose Daniel 13.9, Plt Count 232, MPV 10.0, Immature Gran % (Auto) 0.500, Neut % (Auto) 88.2 H, Lymph % (Auto) 8.3 L, [place] % (Auto) 2.9, Eos % (Auto) 0.0, Baso % (Auto) 0.1, Absolute Neuts (auto) 11.7 H, Absolute Lymphs (auto) 1.11, Nucleated RBC % 0, Sodium 144, Potassium 4.0, Chloride 111 H, Carbon Dioxide 26.0, Anion Gap 7, BUN 13, Creatinine 0.72, Estim Creat Clear Calc 96.85, Est GFR (MDRD) Af Amer 152, Est GFR (MDRD) Non-Af 126, BUN/Creatinine Ratio 18.1, Glucose 132 H, Calcium 8.1 L Radiography Diagnostic Testing: Radiology Impression Abdomen/Pelvis CT 07/28/23 16:37 IMPRESSION: 1. Terminal ileum wall stranding identified thickening, fold thickening and adjacent fibrofatty proliferation with moderate luminal narrowing/stricture but no bertha obstruction. Findings are compatible with Crohn''s disease/IBD. No enteric fistula, sinus tract, abscess or extraluminal contrast. Electronically Signed: John Finnegan MD ([place]) at 20:40 EST Reading Location ID and State: [facility] / [place] , Service support , Physical Exam Const oriented x3 and no apparent distress Resp normal respiratory effort Cardio regular rate GI soft to palpation and non-tender Inspection: abdominal distention Assessment & Plan Assessment/Plan (1) Partial small bowel obstruction: PLAN: Patient doing well denies any abdominal pain tolerating clear liquids. Management per GI. No plans for any general surgery intervention. Millicent Colby M.D. Pager: [phone] [facility] [address] [place] [address], Outpatient Pavilion, [address] [place] [address] Office: [phone] Charges/Coding Visit Charges Inpatient E&M: 48163 Subs Hosp L2
[2023-07-29 09:32] VITALS: BP 114/76; PULSE 68; RESP 17; TEMP 36.6; O2SAT 95
--- NOTE | 2023-07-29 11:36 | PCM.DC.SUM ---
Providers Date of Admission: 07/27/23 Date of Discharge: 07/29/23 Primary Care Physician: EDINSON Shields Consultations 07/27/23 15:41 Consult: Gastroenterology Routine Consulting Provider: [facility] Reason for Consult: concern for new onset crohn's flare EMERGENT Consult: No Notified: Yes Date Notified: 07/27/23 Time Notified: 13:40 Method of Notification: ED Physician Initiated Consult: General Surgery Routine Consulting Provider: Sly Resendiz Reason for Consult: partial sbo EMERGENT Consult: No Notified: Yes Date Notified: 07/27/23 Time Notified: 13:40 Method of Notification: ED Physician Initiated Reason For Visit: PARTIAL SBO, SMALL BOWEL SWELLING Diagnosis Discharge Diagnosis (1) Partial small bowel obstruction: Status: Acute Code(s): K56.600 - Partial intestinal obstruction, unspecified as to cause Medications at Discharge Home Medications amoxicillin 875 mg-potassium clavulanate 125 mg tablet 1 tab PO BID #24 tabs 07/29/23 prednisone 20 mg tablet 20 mg PO DAILY #7 tabs 07/29/23 Hospital Course Operations None Procedures - (CT/abdomen and pelvis x2) Summary of Care Provided Minutes Spent on Discharge: 38 Hospital Course: Mr. Noonan is a 43-year-old white male who presented to the emergency department at [facility] on 07/27/2023 complaining of abdominal pain, nausea, and vomiting. Symptoms started the night prior to presentation and he had vomited at 8 AM on the morning of presentation with some blood in his emesis. Patient reported he had not had a bowel movement in 2 days which was atypical for him. Vital signs were unremarkable however CBC showed a leukocytosis and therefore CT of the abdomen pelvis was performed. Patient was found to have extensive small bowel feces involving at least 20 cm of the ileum with edematous wall thickening that was concerning for partial small bowel obstruction and an appearance consistent with possible underlying inflammatory bowel disease. General surgery was contacted by the emergency department who recommended admission to medicine and GI consult. GI was contacted and recommended IV Solu-Medrol and Zosyn. He was admitted to the medical floor and was started on the above treatments as well as IV fluids. He was seen by general surgery who indicated he was not surgical candidate. He was seen by gastroenterology which he probably had a form of inflammatory bowel disease and biomechanical inflammatory markers were sent for inflammatory bowel disease as well as biochemical workup for autoimmune diseases. Stool lactoferrin was positive but enteric panel was unremarkable. Ova and parasites are pending at the time of discharge. He slowly improved after the initiation of IV antibiotics and Solu-Medrol. And his diet was able to be advanced from clears to full's and eventually to a regular diet which she tolerated without any difficulty. He was able to be discharged home in stable condition on 07/29/2023. I did discuss case with gastroenterology prior to discharge and they recommended ongoing antibiotics with Augmentin for another 12 days which was prescribed as well as oral prednisone 20 mg daily for another week. He will need outpatient colonoscopy for definitive diagnosis and follow-up GI for treatment plan. He will need no more follow-up with general surgery at this time. Prescriptions for his antibiotics were sent to local pharmacy. He was given a dose of IV antibiotics as well as steroids prior to discharge as he will not be able to fill his prescriptions until tomorrow due to the holiday. Discharge diagnoses: Partial small bowel obstruction-resolved Suspected inflammatory bowel disease Hepatosteatosis Obesity Physical Exam Const alert, oriented x3, no apparent distress, no limitations, healthy appearing and well nourished Constitutional Narrative: Middle-aged, white male, sitting up in bed watching television, appears comfortable nontoxic Nutritional Appearance: obese HEENT normocephalic, head/scalp atraumatic, hearing grossly normal bilaterally and moist oral mucous membranes HEENT Narrative: Mallampati 2-3, no thrush Eyes PERRL, EOMs intact bilaterally and conjunctivae normal Eyes Narrative: No scleral icterus Neck no lymphadenopathy and supple Neck Narrative: Trachea midline, no thyroid enlargement Resp normal respiratory effort, no retractions, no use of accessory muscles and clear to auscultation bilaterally Auscultation: Negative for rales, rhonchi or wheezes Cardio regular rate, regular rhythm, S1 normal heart sound, S2 normal heart sound, no murmurs, no rub, no gallops and no clicks GI normal to inspection, nondistended, normoactive bowel sounds, soft to palpation and non-tender Extremity no clubbing, cyanosis or edema Extremity Narrative: Pedal pulses are 2+ Neuro oriented x3, CN's II-XII intact bilaterally, moves all extremities, no focal motor deficits and no sensory deficits noted Speech: speech normal Psych affect normal Psych Narrative: Very pleasant, eye contact is good Weight / BMI Weight Weight: 89.4 kg Body Mass Index (BMI) 37.2 ABG / Lab / Microbiology Data 07/29/23 04:45 07/29/23 04:45 Laboratory: Laboratory Results - last 24 hr 07/29/23 04:45: WBC 13.3 H, RBC 4.39 L, Hgb 13.2, Hct 40.2, MCV 91.6, MCH 30.1, MCHC 32.8, RDW Std Deviation 47.2 H, RDW Coeff of Jose Daniel 13.9, Plt Count 232, MPV 10.0, Immature Gran % (Auto) 0.500, Neut % (Auto) 88.2 H, Lymph % (Auto) 8.3 L, [place] % (Auto) 2.9, Eos % (Auto) 0.0, Baso % (Auto) 0.1, Absolute Neuts (auto) 11.7 H, Absolute Lymphs (auto) 1.11, Nucleated RBC % 0, Sodium 144, Potassium 4.0, Chloride 111 H, Carbon Dioxide 26.0, Anion Gap 7, BUN 13, Creatinine 0.72, Estim Creat Clear Calc 96.85, Est GFR (MDRD) Af Amer 152, Est GFR (MDRD) Non-Af 126, BUN/Creatinine Ratio 18.1, Glucose 132 H, Calcium 8.1 L Microbiology: Microbiology 07/29/23 Unknown Stool Stool Lactoferrin - Final 07/29/23 Unknown Stool Enteric Bacteriology - Final Radiography Diagnostic Testing: Radiology Impression Abdomen/Pelvis CT 07/28/23 16:37 IMPRESSION: 1. Terminal ileum wall stranding identified thickening, fold thickening and adjacent fibrofatty proliferation with moderate luminal narrowing/stricture but no bertha obstruction. Findings are compatible with Crohn''s disease/IBD. No enteric fistula, sinus tract, abscess or extraluminal contrast. Electronically Signed: John Finnegan MD ([place]) at 20:40 EST , D/C Instructions Discharge Diet: Light diet - advance as tolerated Discharge Activity: Return to Normal Activity Return to work on: 11/24/23 Meaningful Use Info Meaningful Use Diagnoses (Choose all that apply): None applicable Discharge Plan Admission Admit Date/Time: 07/27/23 13:18 Primary Reason for Your Visit: Abdominal pain/nausea/vomiting Attending Provider: Shamika Schaefer Primary Care Provider: Vaishnavi Agrawal Consulting Providers: Sly Resendiz; Candace Mills; Alexis Boudreaux Discharge Orders/Prescriptions Prescriptions: New prednisone 20 mg tablet 20 mg PO DAILY Qty: 7 0RF amoxicillin-pot clavulanate 875-125 mg tablet 1 tab PO BID Qty: 24 0RF Referrals / Follow Up: Dhruv Winston DO [Med Staff - Active Staff] - See Referral Note (Call Wednesday to set of follow up for colonoscopy and post hospital f/u to be seen as soon as appt available) Parker Christensen MD [Non-Staff] - Within 2 Weeks Vaishnavi Agrawal PA [Primary Care Provider] - Disposition Disposition (needs filled in before D/C Order can be placed): Home, Self Care Charges/Coding Visit Charges Inpatient E&M: 24217 Disch Hosp >30min
[2023-07-29 13:41] VITALS: BP 134/73; PULSE 73; RESP 17; TEMP 36.9; O2SAT 97
[2023-07-30 13:07] LABS: Anti-Centromere B Ab <0.2 AI (0.0-0.9); Anti-Chromatin <0.2 AI (0.0-0.9); Anti-Jo <0.2 AI (0.0-0.9); Anti-Scleroderma-70 AB <0.2 AI (0.0-0.9); Anti-dsDNA Ab <1 IU/mL (0-9); RNP Ab <0.2 AI (0.0-0.9); SJOGREN'S Anti-SS-A test 0.2 AI (0.0-0.9); SJOGREN'S Anti-SS-B test < 0.2 AI (0.0-0.9); Smith Ab <0.2 AI (0.0-0.9)
[2023-08-04 00:06] LABS: Albumin 3.5 g/dL (2.9-4.4); Alpha-1-Globulins 0.2 g/dL (0.0-0.4); Alpha-2-Globulins 0.8 g/dL (0.4-1.0); Cytoplasmic Ab (C-ANCA) <1:20 titer (Neg:<1:20); Deamidated Gliadin IgA 18 units (0-19); Deamidated Gliadin IgG 3 units (0-19); Endomysial Antibody IgA Negative (Negative); Gamma Globulin 0.7 g/dL (0.4-1.8); HEPATITIS B SURFACE AG Negative (Negative); Hep C Antibodies Non Reactive (Non Reactive); Hepatitis A IgM Antibody Negative (Negative); Hepatitis B Core AB IgM Negative (Negative); Immunoglobulin A 335 mg/dL (90-386); Immunoglobulin G 859 mg/dL (603-1613); Immunoglobulin M 68 mg/dL (20-172); PROEL- TOTAL PROTEIN 6.4 g/dL (6.0-8.5); Perinuclear Ab (P-ANCA) <1:20 titer (Neg:<1:20); QNTFERON TB Mitogen Value 0.09 IU/mL (.); QNTFERON TB Nil Value 0 IU/mL (.); QNTFERON TB1+ Ag Value 0 IU/mL (.); QNTFERON TB2+ Ag Value 0 IU/mL (.); QNTIFERON TB Positive Criteria Indeterminate (Negative); t-Transglutaminase IgA <2 U/mL (0-3)
== END 2023-07-29 14:17 | disposition home or self-care (01) | DRG 390 ==
LOC: ED 12:55 → MS3 13:44
PROVIDERS: Family Medicine; Internal Medicine Gastroenterology; Physician Assistant; Admitting Provider Internal Medicine; Emergency Provider Emergency Medicine; PCP Physician Assistant; Visit Provider Internal Medicine
DX: K56.600 Partial intestinal obstruction, unspecified as to cause (principal); E66.9 Obesity, unspecified; K76.0 Fatty (change of) liver, not elsewhere classified; K58.9 Irritable bowel syndrome, unspecified; Z68.37 Body mass index [BMI] 37.0-37.9, adult; Z87.891 Personal history of nicotine dependence
CPT/HCPCS: 36415; 74177; 80048; 80053; 80074; 82784; 83516; 83615; 83630; 83690; 84165; 84443; 85025; 85652; 86140; 86225; 86235; 86255; 86256; 86334; 86480; 87177; 87209; 87506; 99284; J7030; J7050; Q9967; A4216; J2405

== ENCOUNTER → 2023-08-18 | Outpatient (CLI) | payer OTHER, SELFPAY ==
[2023-08-18 12:22] LABS: CRP < 2.90 mg/L (0.0-3.0)
[2023-08-20 20:07] LABS: QNTFERON TB Mitogen Value > 10.00 IU/mL (.); QNTFERON TB Nil Value 0.01 IU/mL (.); QNTFERON TB1+ Ag Value 0.02 IU/mL (.); QNTFERON TB2+ Ag Value 0.01 IU/mL (.); QNTIFERON TB Positive Criteria Negative (Negative)
== END | disposition home or self-care (01) ==
PROVIDERS: PCP Physician Assistant; Referring Provider Internal Medicine Gastroenterology; Visit Provider Internal Medicine Gastroenterology
DX: K50.00 Crohn's disease of small intestine without complications (principal); K56.600 Partial intestinal obstruction, unspecified as to cause
CPT/HCPCS: 36415; 86140; 86480

== ENCOUNTER 2023-09-03 05:14 | Day surgery (SDC) | payer OTHER, SELFPAY ==
--- NOTE | 2023-09-02 | COLBX_PTH ---
PATHOLOGY RESULTS PATIENT: DUSTIN MENDEZ LOC: EN U#:[id number] AGE/SX: 43/M ROOM: RE09/03/[address]: Dr. Dhruv Winston DO : 1980 BED: DIS: 09/03/2023 SPEC #: [id number] RECD: 09/03/23 11:50 STATUS: SURJIT MAYNOR #: [id number] KAMIAL: 09/02/23 00:[address]: Dhruv Winston DEPT: SURGICAL PATHOLOGY RECD BY: Jessa Cortez ENTERED: 09/03/23 11:51 SP TYPE: COLON BX OTHR DR: EDINSON Shields Tissues: Duodenum, NOS Ileum, NOS COLON BIOPSY Procedures: Surgery Specimen Level IV HEADER OPERATION: Colonoscopy with biopsy, EGD with biopsy PRE-OP DIAGNOSIS: Partial bowel obstruction TISSUE SUBMITTED: A - Duodenum biopsy, B - Terminal ileum biopsy, C - Random colon biopsy MICROSCOPIC DIAGNOSIS A. Duodenum, biopsy: Mild nonspecific chronic inflammation. B. Terminal ileum, biopsy: Ulceration with associated granulation and acute and chronic inflammation. C. Colon, random biopsy: Chronic active colitis pattern of injury. See comment. AM:yany 09/07/2023 COMMENT C. Sections show cryptitis and mild expansion of lamina propria. Crypt abscesses, fissuring ulcers or granulomas are not identified. Clinical correlation is suggested. MICROSCOPIC DESCRIPTION Slides are reviewed. GROSS DESCRIPTION A - Received in fixative is one container labeled with the patient's name and designated duodenum biopsy. The specimen consists of two irregular fragments of light lawrence soft tissue that in aggregate measure 0.5 x 0.5 x 0.1 cm. The specimen is totally submitted in one cassette. B - Received in fixative is one container labeled with the patient's name and designated terminal ileum biopsy. The specimen consists of multiple irregular fragments of light lawrence soft tissue that in aggregate measure 1.0 x 0.5 x 0.1 cm. The specimen is totally submitted in one cassette. C - Received in fixative is one container labeled with the patient's name and designated random colon biopsy. The specimen consists of multiple irregular fragments of light lawrence soft tissue that in aggregate measure 1.5 x 1.0 x 0.1 cm. The specimen is totally submitted in one cassette. / SAHRA:yany 09/03/2023 TC:2 CPT: 01512 x3
--- OUTSIDE RECORDS SUMMARY | 2023-09-03 05:16 | XMS RPT_ITS | CCD ---
Author Name Unknown Address [address] [place] [address] Organization [facility] Care Team Providers Care Ocean Export Coordinator Name Role Phone Vaishnavi Agrawal PA-C Primary Care Provider [phone] Vaishnavi AGRAWAL Referring Unavailable Vaishnavi AGRAWAL Primary Care Unavailable Vaishnavi AGRAWAL Primary Care Unavailable SELF Referring Unavailable Vaishnavi AGRAWAL Attending Unavailable Vaishnavi AGRAWAL Primary Care Unavailable Problems Active Problems Problem Classification Problem Date Documented Da te Episodic/Chronic Immunizations and screening for infectious disease (1 source) Tuberculosis screening status; Translations: [Encounter for screening for respiratory tuberculosis] 08-13-2023 Episodic Intestinal obstruction without hernia (5 sources) Partial obstruction of small bowel; Translations: [Partial intestinal obstruction, unspecified as to cause] Onset: 08-12-2023 08-12-2023 Episodic Other aftercare (1 source) Post-discharge follow-up; Translations: [Encounter for follow-up examination after completed treatment for conditions other than malignant neoplasm] 08-12-2023 Episodic Other aftercare (1 source) Encounter for follow-up examination after completed treatment for conditions other than malignant neoplasm; Translations: [Hospital discharge follow-up] Onset: 08-12-2023 Episodic Past or Other Problems Problem Classification Problem Date Documented Da te Episodic/Chronic Spondylosis; intervertebral disc disorders; other back problems (3 sources) Backache; Translations: [Dorsalgia, unspecified] Onset: 06-17-2007 06-17-2007 Episodic Results Test Name Value Interpretation Reference Range Facil ity Vital Signs Date Time Vital Sign Value Performing Clinician Faci lity 08-12-2023 17:39-0500 Body temperature 98.01 [degF] KAISER Agrawal PA-C Work Phone: [facility] 08-12-2023 17:39-0500 Body weight 86.18 kg NA Agrawal PA-C Work Phone: [facility] 08-12-2023 17:39-0500 Diastolic blood pressure 70 mm[Hg] NA Agrawal PA-C Work Phone: [facility] 08-12-2023 17:39-0500 Heart rate 72 /min NA Agrawal PA-C Work Phone: [facility] 08-12-2023 17:39-0500 SaO2% (BldA) [Mass fraction] 98 % NA Agrawal PA-C Work Phone: [facility] 08-12-2023 17:39-0500 Systolic blood pressure 116 mm[Hg] NA Agrawal PA-C Work Phone: [facility] Encounters Encounter Date Encounter Type Care Provider Facility Start: 08-18-2023 End: 08-19-2023 ambulatory M Chris Agrawal PA-C Work Phone: [facility] [place] Plan of Treatment Date Care Activity Detail Author Start: 04-24-2031 Urine microalbumin profile DTaP,Tdap,Td Vaccine (2 - Td or Tdap) [facility] Start: 08-12-2023 End: 11-11-2023 Basic metabolic 2000 panel - Serum or Plasma BASIC METABOLIC PNL Lab Routine Partial small bowel obstruction (HCC) Expected: 08/12/2023, Expires: 11/11/2023 [facility] Work Phone: Immunizations Immunization Date Immunization Notes Care Provider Shaunna davis 04-24-2021 pneumococcal conjuga te vaccine, 13 valent NA Danal d/b/a [employer] PA-C Work Phone: [facility] 04-24-2021 tetanus toxoid, redu erich diphtheria toxoid, and acellular pertussis vaccine, adsorbed NA Agrawal PA-C Work Phone: [facility] 07-10-2019 influenza, injectabl e, quadrivalent, contains preservative NA Agrawal PA-C Work Phone: [facility] Work Phone: 07-10-2019 influenza virus vaccine, unspecified formulation KAISER Agrawal PA-C Work Phone: [facility] Payers Date Payer Category Payer Unknown MMO MMO [employer] PPO [id number] 2019-Present [phone] [address] [place] [address] PPO [id number] 2019 Unknown [id number] Social History Date Type Detail Facility Start: 08-12-2023 Tobacco smoking stat us [facility] Ex-smoker [facility] End: 06-05-2018 History of tobacco use Current smoker [facility] End: 06-05-2018 History of tobacco use Cigarette Smoker [facility] Start: 08-12-2023 Tobacco use and exposure Smoke less tobacco non-user [facility] Start: 08-12-2023 Alcohol intake Current drinke r of alcohol (finding) [facility] Start: 08-11-2023 End: 08-12-2023 History of Social function [facility] Start: 08-11-2023 End: 08-12-2023 [facility] [employer] [facility] Has the [employer], or [employer] threatened to shut off services in your home in past 12Mo No [facility] Are you now , , , , never or living with a partner? [facility] How often to you hav e a drink containing alcohol? 2-4 times a month [facility] How many standard dr inks containing alcohol do you have on a typical day? 3 or 4 [facility] How often do you hav e 6 or more drinks on 1 occasion? Monthly [facility] How hard is it for y ou to pay for the very basics like food, housing, medical care, and heating Not very hard [facility] Adult Depression Screening Assessment 0 [facility] Do you feel stress - tense, restless, nervous, or anxious, or unable to sleep at night because your mind is troubled all the time - these days [OSQ] To some extent [facility] (I/We) worried praveen er (my/our) food would run out before (I/we) got money to buy more. Never true [facility] Start: 04-24-2021 Education 16 [facility] Start: 08-12-2023 Tobacco Comment 2 packs per we ek x 22 years [facility] Start: 11-05-2012 Alcohol Comment seldom [facility] Start: 1980 Sex Assigned At Not on file C [facility] Start: 04-15-2021 Sexual orientation Heterosexual (shubham osullivan) [facility] Note 08-13-2023 Telephone Encounter - Vaishnavi Agrawal PA-C - 08/13/2023 4:10 PM EST Note Date & Type Note Facility 08-13-2023 Miscellaneous Notes Formattin g of this note is different from the original. Quanteron testing was indeterminate. Please schedule [place] Patient Msg on 08/12/23 PPD (TB INTRADERMAL [id number]) B/O Joselito Martines PA-C documented in this encounter [facility] Progress note 08-12-2023 Note Date & Type Note Facility 08-12-2023 Note HNO ID: [id number] Author: Vaishnavi Agrawal PA-C Service: ? Author Type: Physician Upholsterer Assembly Line Type: Progress Notes Filed: 08/12/2023 9:11 PM Note Text: 43 year old male with c/o Hospital discharge follow-up Facility: [facility] Admission date 07/27/2023 Discharge date 07/29/2023 Discharge diagnoses: Partial small bowel obstruction Suspected inflammatory bowel disease Hepatosteatosis Obesity Medication reconciliation: New medications: Amoxicillin/clavulanate 875/125 mg tablet p.o. twice daily #24/0 Prednisone 20 mg tablets 1 p.o. daily x 7 days #7/0 Follow-up referrals: Dr. Dhruv Winston MD Hospital course: 07/27/2023 patient presented with [facility], from records: He developed nausea and vomiting prior evening with generalized abdominal pain and cramping. Last emesis 8 AM day of admission. Small amount of bright red blood with mucus. Stated no bowel movement in 2 days which was unusual for him. Vital signs: 98.2 Y-537-10-132/90-98% RA Abnormal labs: CBC: WBC 15.6, neutrophil 83.1%, absolute neutrophil 13.0 Chemistries: Glucose 131, otherwise normal. Lipase WNL. CT abdominal pelvis: 1. Extensive small bowel feces sign involving distal terminal ileum with edematous wall thickening. Mildly enlarged adjacent lymph nodes. Findings suggest a least partial small bowel obstruction that may be related to inflammatory bowel disease such as Crohn's disease or infectious ileitis 2.Trace ascites 3. Fatty liver 4. Small fat-containing periumbilical hernia MDM: Treated with IV fluid, Bentyl, Zofran. Due to leukocytosis CT was ordered. General surgery was consulted and admitted patient to [facility]. Case was discussed with quality auditor Dr. Gallardo who recommended IV Zosyn and Solu-Medrol which was given. Patient was given extensive IV fluids. Stool for lactoferrin was positive but enteric panel unremarkable, ova and parasites pending at time of discharge. Slowly improved with IV antibiotics and Solu-Medrol. Was advance from clear to full and eventually to regular diet which she tolerated well. Was discharged in stable condition with prescription for Augmentin to continue for 12 days, follow-up with gastroenterology, outpatient colonoscopy anticipated. Patient was given an IV dose of antibiotics and steroids prior to discharge due to not being able to fill prescriptions until the following day due to holiday. 07/28/[address]: Terminal wall stranding identified thickening, focal thickening adjacent fibrofatty proliferation with moderate luminal narrowing/stricture without bertha obstruction. Findings are compatible with Crohn's disease/IBD. No enteric fistula sinus tract, abscess or extraluminal contrast. Discharge labs: CBC: WBC 13.3-Hgb 13.2-HCT 40.2-PLT 232, neutrophil 88.2% absolute Neut 11.7 H chemistries: NA 144-CL 111-K4.0-CO2 26.0-BUN 13-CRE 0.72-GLU 132.Ca 8.1L Current status: Having some bloating but not really in pain. Appetite good. No nausea, heart burn, bloating. Has been avoiding daily. Seeing Friend next Wednesday. HISTORIES FAMILY HISTORY Problem Relation Age of Onset None Mother Diabetes Father Heart Paternal Grandfather PAST MEDICAL HISTORY Diagnosis Date NEGATIVE MEDICAL HISTORY PAST SURGICAL HISTORY Procedure Laterality Date NONE Social History Tobacco Use Smoking status: Former Types: Cigarettes Quit date: 06/05/2018 Years since quittin.1 Smokeless tobacco: Never Tobacco comments: 2 packs per week x 22 years Substance Use Topics Alcohol use: Yes Comment: seldom Drug use: No ACTIVE PROBLEM LIST Backache, Unspecified No current outpatient medications on file. No current facility-administered medications for this visit. Hepatitis B Vaccine(1 of 3 - 3-dose series) Never done Hepatitis C Screening Never done HIV Screening Never done Lipid Screening Never done Depression Assessment Never done Influenza Vaccine(1) due on 05/07/2023 Covid-19 Vaccine( season) due on 05/07/2023 EXAM: BP 116/70 Pulse 72 Temp 36.7 ?C (98 ?F) Wt 86.2 kg (190 lb) SpO2 98% BMI 27.86 kg/m? Pleasant well appearing adult man in no acute distress. Alert and oriented all spheres. Normal affect and cognition. Speech normal. No deficits to learning or comprehension. Skin warm, dry, pink to lips and nailbeds. Normal turgor. Respirations regular and unlabored. HEENT: NCAT. No scleral icterus or conjunctival injection. TM's clear. Nose and oropharynx free from injection or lesion. Oral membranes moist and pink. No cervical lymph nodes. Thyroid non-tender, no masses, or enlargement. Carotids pulses 2+/4+ without bruits. No JVD with HOB at 30 degrees. Chest is normal shape. Lungs are clear to all hinojosa with good air exchange through out. HRRR without murmur or gallop. No lifts, heaves, or rubs. Abdomen: active bowel sounds throu (more content not included)... [facility] History of Present illness Narrative 08-12-2023 Vaishnavi Agrawal PA-C - 08/12/2023 5:20 PM EST Note Date & Type Note Facility 08-12-2023 History of Presen t illness Narrative 43 year old male with c/o Hospital discharge follow-up Facility: [facility] Admission date 07/27/2023 Discharge date 07/29/2023 Discharge diagnoses: Partial small bowel obstruction Suspected inflammatory bowel disease Hepatosteatosis Obesity Medication reconciliation: New medications: Amoxicillin/clavulanate 875/125 mg tablet p.o. twice daily #24/0 Prednisone 20 mg tablets 1 p.o. daily x 7 days #7/0 Follow-up referrals: Dr. Dhruv Winston MD Hospital course: 07/27/2023 patient presented with [facility], from records: He developed nausea and vomiting prior evening with generalized abdominal pain and cramping. Last emesis 8 AM day of admission. Small amount of bright red blood with mucus. Stated no bowel movement in 2 days which was unusual for him. Vital signs: 98.2 K-462-92-132/90-98% RA Abnormal labs: CBC: WBC 15.6, neutrophil 83.1%, absolute neutrophil 13.0 Chemistries: Glucose 131, otherwise normal. Lipase WNL. CT abdominal pelvis: 1. Extensive small bowel feces sign involving distal terminal ileum with edematous wall thickening. Mildly enlarged adjacent lymph nodes. Findings suggest a least partial small bowel obstruction that may be related to inflammatory bowel disease such as Crohn's disease or infectious ileitis 2.Trace ascites 3. Fatty liver 4. Small fat-containing periumbilical hernia MDM: Treated with IV fluid, Bentyl, Zofran. Due to leukocytosis CT was ordered. General surgery was consulted and admitted patient to [facility]. Case was discussed with quality auditor Dr. Gallardo who recommended IV Zosyn and Solu-Medrol which was given. Patient was given extensive IV fluids. Stool for lactoferrin was positive but enteric panel unremarkable, ova and parasites pending at time of discharge. Slowly improved with IV antibiotics and Solu-Medrol. Was advance from clear to full and eventually to regular diet which she tolerated well. Was discharged in stable condition with prescription for Augmentin to continue for 12 days, follow-up with gastroenterology, outpatient colonoscopy anticipated. Patient was given an IV dose of antibiotics and steroids prior to discharge due to not being able to fill prescriptions until the following day due to holiday. 07/28/[address]: Terminal wall stranding identified thickening, focal thickening adjacent fibrofatty proliferation with moderate luminal narrowing/stricture without bertha obstruction. Findings are compatible with Crohn's disease/IBD. No enteric fistula sinus tract, abscess or extraluminal contrast. Discharge labs: CBC: WBC 13.3-Hgb 13.2-HCT 40.2-PLT 232, neutrophil 88.2% absolute Neut 11.7 H chemistries: NA 144-CL 111-K4.0-CO2 26.0-BUN 13-CRE 0.72-GLU 132.Ca 8.1L Current status: Having some bloating but not really in pain. Appetite good. No nausea, heart burn, bloating. Has been avoiding daily. Seeing Dr. Friend next Wednesday. HISTORIES FAMILY HISTORY Problem Relation Age of Onset None Mother Diabetes Father Heart Paternal Grandfather PAST MEDICAL HISTORY Diagnosis Date NEGATIVE MEDICAL HISTORY PAST SURGICAL HISTORY Procedure Laterality Date NONE Social History Tobacco Use Smoking status: Former Types: Cigarettes Quit date: 06/05/2018 Years since quittin.1 Smokeless tobacco: Never Tobacco comments: 2 packs per week x 22 years Substance Use Topics Alcohol use: Yes Comment: seldom Drug use: No ACTIVE PROBLEM LIST Backache, Unspecified No current outpatient medications on file. No current facility-administered medications for this visit. Hepatitis B Vaccine(1 of 3 - 3-dose series) Never done Hepatitis C Screening Never done HIV Screening Never done Lipid Screening Never done Depression Assessment Never done Influenza Vaccine(1) due on 05/07/2023 Covid-19 Vaccine( season) due on 05/07/2023 EXAM: BP 116/70 Pulse 72 Temp 36.7 C (98 F) Wt 86.2 kg (190 lb) SpO2 98% BMI 27.86 kg/m Pleasant well appearing adult man in no acute distress. Alert and oriented all spheres. Normal affect and cognition. Speech normal. No deficits to learning or comprehension. Skin warm, dry, pink to lips and nailbeds. Normal turgor. Respirations regular and unlabored. HEENT: NCAT. No scleral icterus or conjunctival injection. TM's clear. Nose and oropharynx free from injection or lesion. Oral membranes moist and pink. No cervical lymph nodes. Thyroid non-tender, no masses, or enlargement. Carotids pulses 2+/4+ without bruits. No JVD with HOB at 30 degrees. Chest is normal shape. Lungs are clear to all hinojosa with good air exchange through out. HRRR without murmur or gallop. No lifts, heaves, or rubs. Abdomen: active bowel sounds throughout, soft, nontender, no masses or organomegaly. No CVAT. Extrem: no clubbing, cyanosis, edema. Distal pulses 2+/4, prompt capillary refill. ASSESSMENT/PLAN: 1. Partial small bowel obstruction (HCC) - ICD9: 560.9, ICD10: K56.600 (primary diagnosis) Doing well currently, back to baseline with pain and bowel habits Has f/u in [address] Winston. - CBC + DIFF - BASIC METABOLIC PNL 2. Hospital discharge follow-up - ICD9: V67.59, ICD10: Z09 Records reviewed problem list updated, medication reconciled. Vaishnavi Agrawal PA-C Some of this note may have been copied and pasted for the purpose of history context and comparison and has been adjusted for changes in prior data. Vaishnavi Agrawal PA-C documented in this encounter [facility] Evaluation note Note Date & Type Note Facility documented in this encounter [facility] Evaluation note Note Date & Type Note Facility documented in this encounter [facility] Summary Purpose Family History No Family History Records Found Advance Directives No Advanced Directives Records Found Additional Source Comments Source Comments (unrecognize d section and content) In the event this informatio n is protected by the Federal Confidentiality of Alcohol and Drug Abuse Patient Records regulations: The Federal rules restrict any use of the information to criminally investigate or prosecute any alcohol or drug abuse patient.[facility] the event this information is protected by the Federal Confidentiality of Alcohol and Drug Abuse Patient Records regulations: The Federal rules restrict any use of the information to criminally investigate or prosecute any alcohol or drug abuse patient.[facility] the event this information is protected by the Federal Confidentiality of Alcohol and Drug Abuse Patient Records regulations: The Federal rules restrict any use of the information to criminally investigate or prosecute any alcohol or drug abuse patient.[facility] Reason for Visit (unrecogniz ed section and content) Care Teams (unrecognized sec tion and content) [employer] Coordinator Relationship Specialty Start Date End Date Vaishnavi Agrawal PA-C [address] [place], [place] [id number] PCP - General Family Medicine 07/10/19 [employer] Coordinator Relationship Specialty Start Date End Date Vaishnavi Agrawal PA-C [address] [place], [place] [address] PCP - General Family Medicine 07/10/19 (unrecognized sect ion and content) No Status Records Found INFORMATION SOURCE (unrecogn ized section and content) FOR RECORDS PERTAINING TO PATIENTS WHO ARE OR HAVE BEEN ENROLLED IN A CHEMICAL DEPENDENCY/SUBSTANCEABUSE PROGRAM, SOME INFORMATION MAY BE OMITTED. This clinical summary was aggregated from multiple sources. Caution should be exercised in using it in the provision of clinical care. This summary normalizes information from multiple sources, and as a consequence, information in this document may materially change the coding, format and clinical context of patient data. In addition, data may be omitted in some cases. CLINICAL DECISIONS SHOULD BE BASED ON THE PRIMARY CLINICAL RECORDS. [facility] [employer] provides no warranty or guarantee of the accuracy or completeness of information in this document.
[2023-09-03 05:55] VITALS: BP 109/78; PULSE 79; RESP 16; TEMP 36.6; O2SAT 99; BMI 26.3
[2023-09-03] MEDS: Lactated Ringers 1,000 ML 15 ML IV (05:57)
--- NOTE | 2023-09-03 06:37 | PCM.HP.BLA ---
History and Physical Date of Admission: 09/03/23 3 M who presents to the office today for *[facility] hospitalization 07.27.23-07.29.23 for partial small bowel obstruction with concern for possible Crohn?s etiology. Treated with solu-medrol and zosyn. CT abd/pel IV only 07.27.23 fatty liver; moderate fecal material causing distention from distal small bowel through TI measuring 20cm length and up to 3.5cm in diameter with proximal fluid distention and edematous wall thickening; mildly enlarged lymph nodes. CT abd/pel with contrast 07.28.23 lung atelectasis; circumferential stratified wall thickening/folding of distal ileum to ICV lasting 20cm in length; fibrofatty stranding RLQ with vascular congestion, moderate narrowing of this segment; mildly enlarged lymph nodes RLQ; borderline retroperitoneal lymphadenopathy. OV 08.18.23 reports he has been doing well since hospitalization. Yesterday he had some abdominal cramping and bloating that self-resolved, continues to feel tender. Has been able to return to a normal diet. BM are firm/solid multiple times a day with incomplete evacuation. ? ESR/CRP calp/lact? TB 07.27.23 --/+? H indeterminate? TSH L0.31.CBC (WBC H16.5), CMP, LDH, lipase, GAME, TARAN, ANCA, ONI comp, celiac, hepatitis, HIV, IBD without pertinent abnormality. Stool EP, O/P WNL ROS Const Constitutional: No anorexia, fatigue, fever(s), weight change or sleep problems Eyes Eyes: No change in vision ENT ENT: No abnormal hearing, difficulty swallowing, mouth lesions, tongue swelling or throat swelling Resp Respiratory: No cough or shortness of breath Cardio Cardiology: No chest pain at rest, chest pain with exertion, shortness of breath or dyspnea on exertion Gastro GI: No difficulty swallowing Genitourinary Male: No difficulty urinating or burning urination Musc Musculoskeletal: No joint pain, joint swelling, muscle weakness or decreased muscle mass Skin Skin: No hair loss in leg, yellowing of the eye, itchy eyes, rash, skin ulcer or skin swelling Neuro Neurology: No abnormal hearing, abnormal movements, confusion, unsteady gait/balance or memory loss Psych Psychiatric: No anxiety, No confusion and No memory loss Endo Endocrine: No fatigue or weight change Aller/Imm Allergy/Immunologic: No itchy eyes, throat swelling or tongue swelling Alexis/Lymp Hematologic/Lymphatic: No easy bleeding, easy bruising or enlarged lymph nodes Exam Const General: cooperative and comfortable Nutritional Appearance: average body habitus and well nourished HENMT Head: normal to inspection Ears: hearing grossly normal bilaterally Nose: external nose normal Face and sinus: normal facial exam Mouth: oral mucosae normal Throat: posterior oropharynx normal Eyes General: appearance normal, both eyes and all related structures Neck Neck: normal visual inspection Chest Chest palpation & inspection: normal inspection of the chest and normal palpation of entire chest wall Resp Effort & Inspection: normal respiratory effort Auscultation: Bilateral: Clear to Auscultation Cardio Palpation: normal PMI Rate: regular rate Rhythm: regular rhythm GI Inspection: normal to inspection Auscultation: normal bowel sounds Percussion: normal to percussion Palpation: no hepatosplenomegaly Skin General: no rashes or lesions noted Neuro General: patient alert Extrem General: normal to inspection Psych Affect: normal affect Quality Reporting Tobacco Screening ([facility] 138) Smoking Status: Former smoker Assessment and Plan Assessment and Plan (1) Partial bowel obstruction: Status: Resolved Qualifiers: Intestinal obstruction type: unspecified Qualified Code(s): K56.600 - Partial intestinal obstruction, unspecified as to cause Comment: Concern for Crohn's Disease 08.18.. (2) Crohn's disease involving terminal ileum: Status: Suspected Plan: 43-year-old white male who presented to the emergency department at [facility] on 07/27/2023 complaining of abdominal pain, nausea, and vomiting. Symptoms started the night prior to presentation and he had vomited at 8 AM on the morning of presentation with some blood in his emesis. Patient reported he had not had a bowel movement in 2 days which was atypical for him. Vital signs were unremarkable however CBC showed a leukocytosis and therefore CT of the abdomen pelvis was performed. Patient was found to have extensive small bowel feces involving at least 20 cm of the ileum with edematous wall thickening that was concerning for partial small bowel obstruction and an appearance consistent with possible underlying inflammatory bowel disease. General surgery was contacted by the emergency department who recommended admission to medicine and I was constuled to see him. I recommended IV Solu-Medrol and Zosyn. He was admitted to the medical floor and was started on the above treatments as well as IV fluids. He was seen by general surgery who indicated he was not surgical candidate. I thought that he probably had a form of inflammatory bowel disease and biomechanical inflammatory markers were sent for inflammatory bowel disease as well as biochemical workup for autoimmune diseases. Stool lactoferrin was positive but enteric panel was unremarkable. Ova and parasites are pending at the time of discharge. He slowly improved after the initiation of IV antibiotics and Solu-Medrol. And his diet was able to be advanced from clears to full's and eventually to a regular diet which she tolerated without any difficulty. He was able to be discharged home in stable condition on 07/29/2023. I recommended ongoing antibiotics with Augmentin for another 12 days which was prescribed as well as oral prednisone 20 mg daily for another week. He has similar symptoms abdominal pain and cramping since he has been off of the antibiotics and steroids. I will restart antibiotics and steroids prescribed to him for EGD colonoscopy and possible capsule endoscopy if capsule that his swallowing does not show any signs of obstruction. Orders: Orders Abdomen Single View Today K50.00 - Crohn's disease of small intestine without complications, K56.600 - Partial intestinal obstruction, unspecified as to cause EGD 09/03/23 K50.00 - Crohn's disease of small intestine without complications, K56.600 - Partial intestinal obstruction, unspecified as to cause Colonoscopy 09/03/23 K50.00 - Crohn's disease of small intestine without complications, K56.600 - Partial intestinal obstruction, unspecified as to cause Quantiferon TB-Gold+ Today K50.00 - Crohn's disease of small intestine without complications, K56.600 - Partial intestinal obstruction, unspecified as to cause CRP Today K50.00 - Crohn's disease of small intestine without complications, K56.600 - Partial intestinal obstruction, unspecified as to cause Medications: Refilled amoxicillin-pot clavulanate 875-125 mg 1 TAB PO BID 24 tabs 0RF prednisone 20 mg PO DAILY 30 tabs 2RF I have examined the patient and the H&P has been reviewed. There are no clinical changes since date of exam.
[2023-09-03 07:05] VITALS: BP 109/78; BP 89/52; PULSE 81; RESP 16; TEMP 36.1; O2SAT 92
--- NOTE | 2023-09-03 07:06 | OP.CCLET_ITS ---
09/03/2023 Vaishnavi Agrawal Re : Upper GI endoscopy procedure for Brain Noonan Dear Nghia This procedure was performed on Sunday, September 03, 2023. My impressions and recommendations are as follows: Impressions : - Normal esophagus. - Normal stomach. - Erythematous duodenopathy. Biopsied. Recommendations : - Discharge patient to home. - Resume previous diet. - Continue present medications. - Await pathology results. My findings are described in the full procedure note, which is enclosed. If I can be of further assistance, please feel free to contact me at . Sincerely, Dhruv Winston, 09/03/2023 7:05:19 AM This report has been signed electronically.
--- NOTE | 2023-09-03 07:06 | OP.EGD_ITS ---
Patient Name: Brain Noonan Procedure Date: 09/03/2023 6:31 AM Date of : 1980 Age: 43 Procedure: Upper GI endoscopy Indications: Abdominal pain in the right lower quadrant Providers: Dhruv Winston DO Referring MD: Vaishnavi Agrawal Medicines: Monitored Anesthesia Care Patient Profile: This is a 43 year old male. Refer to note in patient chart for documentation of history and physical. Patient has symptoms of acute abdominal cramping and acute right lower quadrant abdominal pain. Complications: No immediate complications. Procedure: Pre-Anesthesia Assessment: - Prior to the procedure, a History and Physical was performed, and patient medications and allergies were reviewed. The risks and benefits of the procedure and the sedation options and risks were discussed with the patient. All questions were answered and informed consent was obtained. Patient identification and proposed procedure were verified by the physician in the pre-procedure area. Mental Status Examination: alert and oriented. Airway Examination: normal oropharyngeal airway and neck mobility. Respiratory Examination: clear to auscultation. CV Examination: normal. Prophylactic Antibiotics: The patient does not require prophylactic antibiotics. Prior Anticoagulants: The patient has taken no anticoagulant or antiplatelet agents. ASA Grade Assessment: II - A patient with mild systemic disease. After reviewing the risks and benefits, the patient was deemed in satisfactory condition to undergo the procedure. The anesthesia plan was to use monitored anesthesia care (MAC). Immediately prior to administration of medications, the patient was re-assessed for adequacy to receive sedatives. The heart rate, respiratory rate, oxygen saturations, blood pressure, adequacy of pulmonary ventilation, and response to care were monitored throughout the procedure. The physical status of the patient was re-assessed after the procedure. After obtaining informed consent, the endoscope was passed under direct vision. Throughout the procedure, the patient's blood pressure, pulse, and oxygen saturations were monitored continuously. The Colonoscope was introduced through the mouth, and advanced to the second part of duodenum. The upper GI endoscopy was accomplished without difficulty. The patient tolerated the procedure well. Scope In: 6:44:40 AM Scope Out: 6:47:35 AM Total Procedure Duration Time 0 hours 2 minutes 55 seconds Findings: The examined esophagus was normal. The entire examined stomach was normal. Patchy mildly erythematous mucosa without active bleeding and with no stigmata of bleeding was found in the duodenal bulb. Biopsies were taken with a cold forceps for histology. Verification of patient identification for the specimen was done. Estimated blood loss was minimal. Impression: - Normal esophagus. - Normal stomach. - Erythematous duodenopathy. Biopsied. Recommendation: - Discharge patient to home. - Resume previous diet. - Continue present medications. - Await pathology results. Procedure Code(s): --- Professional --- 96115, Esophagogastroduodenoscopy, flexible, transoral; with biopsy, single or multiple CPT copyright 2021 [employer]. All rights reserved. The codes documented in this report are preliminary and upon chemical sales representative review may be revised to meet current compliance requirements. Dhruv Winston DO 09/03/2023 7:05:19 AM This report has been signed electronically. Number of Addenda: 0 Note Initiated On: 09/03/2023 6:31 AM
[2023-09-03 07:10] VITALS: BP 109/78; BP 86/48; PULSE 79; RESP 16; O2SAT 93
--- NOTE | 2023-09-03 07:10 | OP.COLON_ITS ---
Patient Name: Brain Noonan Procedure Date: 09/03/2023 6:47 AM Date of : 1980 Age: 43 Procedure: Colonoscopy Indications: Disease activity assessment of Crohn's disease of the small bowel, Suspected Crohn's disease of the small bowel and colon, Abdominal pain in the right lower quadrant, Diarrhea (secondary to noninfectious colitis) Providers: Dhruv Winston DO Referring MD: Vaishnavi Agrawal Medicines: Monitored Anesthesia Care Patient Profile: This is a 43 year old male. Refer to note in patient chart for documentation of history and physical. Patient has symptoms of acute abdominal cramping and acute right lower quadrant abdominal pain. Last Colonoscopy: none. The patient's first colonoscopy is today. Complications: No immediate complications. Procedure: Pre-Anesthesia Assessment: - Prior to the procedure, a History and Physical was performed, and patient medications and allergies were reviewed. The risks and benefits of the procedure and the sedation options and risks were discussed with the patient. All questions were answered and informed consent was obtained. Patient identification and proposed procedure were verified by the physician in the pre-procedure area. Mental Status Examination: alert and oriented. Airway Examination: normal oropharyngeal airway and neck mobility. Respiratory Examination: clear to auscultation. CV Examination: normal. Prophylactic Antibiotics: The patient does not require prophylactic antibiotics. Prior Anticoagulants: The patient has taken no anticoagulant or antiplatelet agents. ASA Grade Assessment: II - A patient with mild systemic disease. After reviewing the risks and benefits, the patient was deemed in satisfactory condition to undergo the procedure. The anesthesia plan was to use monitored anesthesia care (MAC). Immediately prior to administration of medications, the patient was re-assessed for adequacy to receive sedatives. The heart rate, respiratory rate, oxygen saturations, blood pressure, adequacy of pulmonary ventilation, and response to care were monitored throughout the procedure. The physical status of the patient was re-assessed after the procedure. After I obtained informed consent, the scope was passed under direct vision. Throughout the procedure, the patient's blood pressure, pulse, and oxygen saturations were monitored continuously. The Colonoscope was introduced through the anus and advanced to the terminal ileum. The colonoscopy was performed without difficulty. The patient tolerated the procedure well. The quality of the bowel preparation was adequate. The terminal ileum, ileocecal valve, appendiceal orifice, and rectum were photographed. Scope In: 6:49:50 AM Scope Withdrawal Time 0 hours 8 minutes 36 seconds Scope Out: 6:59:50 AM Total Procedure Duration Time 0 hours 10 minutes 0 seconds Findings: The perianal and digital rectal examinations were normal. Inflammation characterized by erosions and loss of vascularity was found. The recto-sigmoid colon and the hepatic flexure were spared. The inflammation was mild in severity, and when compared to previous examinations, the findings are new. Biopsies were taken with a cold forceps for histology. Verification of patient identification for the specimen was done. Estimated blood loss was minimal. Diffuse inflammation characterized by scarring and aphthous ulcerations was found in the distal ileum and in the terminal ileum. The inflammation was moderate in severity. Biopsies were taken with a cold forceps for histology. Verification of patient identification for the specimen was done. Estimated blood loss was minimal. The terminal ileum contained a benign-appearing, intrinsic moderate stenosis measuring 3 cm (in length) x 2 mm (inner diameter) that was traversed after dilation. A TTS dilator was passed through the scope. Dilation with a 15 mm colonic balloon dilator was performed. The dilation site was examined and showed moderate improvement in luminal narrowing. Estimated blood loss was minimal. Impression: - Inflammatory bowel disease and colitis. Inflammation was found. This was mild in severity, new compared to previous examinations. Biopsied. - Crohn's disease. Inflammation was found. This was moderate in severity. Biopsied. - Stricture in the terminal ileum. Dilated. Recommendation: - Discharge patient to home. - Resume previous diet. - Continue present medications. - Await pathology results. - Repeat colonoscopy in 1 year to assess disease activity. Procedure Code(s): --- Professional --- 39569, Colonoscopy, flexible; with transendoscopic balloon dilation 41980, Colonoscopy, flexible; with biopsy, single or multiple CPT copyright 2021 [employer]. All rights reserved. The codes documented in this report are preliminary and upon quill stripper review may be revised to meet current compliance requirements. Dhruv Winston DO 09/03/2023 7:10:44 AM This report has been signed electronically. Number of Addenda: 0 Note Initiated On: 09/03/2023 6:47 AM
--- NOTE | 2023-09-03 07:11 | OP.CCLET_ITS ---
09/03/2023 Vaishnavi Agrawal Re : Colonoscopy procedure for Brain Noonan Dear Nghia This procedure was performed on Sunday, September 03, 2023. My impressions and recommendations are as follows: Impressions : - Inflammatory bowel disease and colitis. Inflammation was found. This was mild in severity, new compared to previous examinations. Biopsied. - Crohn's disease. Inflammation was found. This was moderate in severity. Biopsied. - Stricture in the terminal ileum. Dilated. Recommendations : - Discharge patient to home. - Resume previous diet. - Continue present medications. - Await pathology results. - Repeat colonoscopy in 1 year to assess disease activity. My findings are described in the full procedure note, which is enclosed. If I can be of further assistance, please feel free to contact me at . Sincerely, Dhruv Winston, 09/03/2023 7:10:44 AM This report has been signed electronically.
[2023-09-03 07:16] VITALS: BP 102/72; BP 109/78; PULSE 91; RESP 16; O2SAT 97
[2023-09-03 07:20] VITALS: BP 101/72; BP 109/78; PULSE 83; RESP 16; TEMP 36.2; O2SAT 94
[2023-09-03 07:45] VITALS: BP 109/78
== END 2023-09-03 08:31 | disposition home or self-care (01) ==
LOC: EN 05:15 → AC 05:17
PROVIDERS: PCP Physician Assistant; Referring Provider Physician Assistant; Visit Provider Internal Medicine Gastroenterology
PROC: 0DJD8ZZ Inspection of Lower Intestinal Tract, Via Natural or Artificial Opening Endoscopic (ICD-10-PCS; CPT 45378; principal; 2023-09-03 06:25)
DX: K50.90 Crohn's disease, unspecified, without complications (principal); Z87.891 Personal history of nicotine dependence; K31.89 Other diseases of stomach and duodenum
CPT/HCPCS: 45380; 45386; 43239; 88305; J7120; J2405